=== PATIENT | male | born 1950 | race Caucasian/White ===

== ENCOUNTER 2021-01-16 20:55 | Observation (INO) | payer OTHER, MEDICARE, MEDICAID ==
--- NOTE | 2021-01-16 21:02 | EDM.PDOC ---
ED HPI GENERAL MEDICAL PROBLEM - General Chief Complaint: Lower Extremity Injury/Pain Stated Complaint: FALL WITH LEFT KNEE/HIP PAIN Time Seen by Provider: 01/16/21 20:55 Source of Information: Reports: Patient, EMS History Limitations: Reports: No Limitations - History of Present Illness INITIAL COMMENTS - FREE TEXT/NARRATIVE: Patient comes emergency department today by ambulance from a local [facility] with concerns of a headache fall and left hip pain. This patient who has a history of hypertension right bundle nga block CVA type 2 diabetes hypothyroidism Guillain-Kamara syndrome thalamic infarct was at the basic care center today at the [facility] here in [place] at about noon when he suddenly had what he relates as a sharp shooting pain on the right side of his head and then he fell to the ground. He is unsure if he hit his head. He is unsure if he had a loss of consciousness. He laid on the floor until nursing staff found him in the basic care center approximately 8 hours later. He was unable to get up from the floor because he had severe pain in his left hip from the fall. He was brought to the emergency department for further evaluation. Upon arrival the patient is alert and appropriate. He has no head or neck or back pain. He has no visual acuity changes. No confusion. No paresthesias of his upper or lower extremities. No chest pain or shortness of breath or difficulty breathing. No cough or congestion. No recent fever or chills. No abdominal pain nausea or vomiting. No hematuria dysuria urinary frequency. No black or tarry stools. The patient is incontinent of urine and stool but that is because he laid on the floor and was unable to get up and get to the bathroom. He primarily complains of a mild headache as well as pain to his left hip. Left Knee Pain Score (Numeric/FACES): 5 - Related Data Allergies Allergy/AdvReac Type Severity Reaction Status Date / Time Influenza Virus Vaccines Allergy Difficulty Verified 01/17/21 01:41 CDT Breathing tetanus and diphtheria Allergy Difficulty Verified 01/17/21 01:41 CDT toxoids Breathing Home Meds: Home Meds ARIPiprazole [Abilify] 10 mg PO DAILY 01/16/21 [History] Acetaminophen 650 mg PO BID 01/16/21 [History] Alogliptin Benzoate [Alogliptin] 25 mg PO DAILY 01/16/21 [History] Aspirin [Ecotrin EC] 325 mg PO DAILY 01/16/21 [History] Bicalutamide [Casodex] 25 mg PO DAILY 01/16/21 [History] Diclofenac Sodium [Voltaren 1% Gel] 2 gram TOP QID PRN 01/16/21 [History] Finasteride 5 mg PO DAILY 01/16/21 [History] Insulin Glarg,Human.Rec.Analog [Lantus] 30 units SUBCUT DAILY 01/16/21 [History] Levothyroxine 150 mcg PO DAILY 01/16/21 [History] Lidocaine 5% [Lidoderm 5%] 1 patch TOP DAILY PRN 01/16/21 [History] Menthol/Camphor [Sarna Original 0.5%-0.5% Lotn] 1 applic TOP ASDIRECTED PRN 01/16/21 [History] Metoprolol Succinate 12.5 mg PO DAILY 01/16/21 [History] Nicotine Polacrilex [Nicotine Lozenge] 2 mg BUCCAL Q4H PRN 01/16/21 [History] Polyethylene Glycol [Polyox Wsr-301] 17 gram PO DAILY PRN 01/16/21 [History] Sertraline [Zoloft] 100 mg PO DAILY 01/16/21 [History] atorvaSTATin [Lipitor] 40 mg PO BEDTIME 01/16/21 [History] lisinopriL [Lisinopril] 5 mg PO DAILY 01/16/21 [History] metFORMIN [Glucophage XR] 500 mg PO DAILY 01/16/21 [History] Review of Systems - Review of Systems Review Of Systems: Comprehensive ROS is negative, except as noted in HPI. ED EXAM, GENERAL - Physical Exam Exam: See Below Free Text/Narrative:: The patient is incontinent of urine upon arrival. Exam Limited By: No Limitations General Appearance: Alert, WD/WN, No Apparent Distress Eye Exam: Bilateral Eye: Corneal Abrasion, PERRL Ears: Normal External Exam, Normal TMs Nose: Normal Inspection, Normal Mucosa Throat/Mouth: Normal Inspection, Normal Lips, Normal Oropharynx, Normal Voice Head: Atraumatic, Normocephalic Neck: Normal Inspection, Supple, Non-Tender, Full Range of Motion. No: Tender Lateral, Tender Midline Respiratory/Chest: No Respiratory Distress, Lungs Clear, Normal Breath Sounds, No Accessory Muscle Use, Chest Non-Tender Cardiovascular: Normal Peripheral Pulses, Regular Rate, Rhythm Peripheral Pulses: 2+: Radial (L), Radial (R), Posterior Tibial (L), Posterior Tibial (R), Dorsalis Pedis (L), Dorsalis Pedis (R) GI/Abdominal: Normal Bowel Sounds, Soft, Non-Tender (Male) Exam: Deferred Rectal (Males) Exam: Deferred Back Exam: Normal Inspection, Full Range of Motion. No: Paraspinal Tenderness, Vertebral Tenderness Extremities: Normal Capillary Refill. No: Normal Inspection (His left leg he is unable to straighten due to pain in his left leg. He has tenderness to the lateral greater trochanteric the left hip. His pelvis is stable. CMS is intact appropriately. Rest of his extremities are unremarkable) Neurological: Alert, Oriented, Normal Cognition, No Motor/Sensory Deficits Psychiatric: Normal Affect, Normal Mood Skin Exam: Warm, Dry, Intact, Normal Color, No Rash Course - Vital Signs Last Recorded V/S: Last Vital Signs Temp 98.3 F 01/17/21 12:00 Pulse 87 01/17/21 12:00 Resp 20 01/17/21 12:00 BP 126/70 01/17/21 12:00 Pulse Ox 97 01/17/21 12:00 - Orders/Labs/Meds Orders: Active Orders 24 hr Category Date Time Status Admission Status [Patient Status] [ADT] Routine ADT 01/16/21 22:46 Active Head wo Cont [CT] Stat Exams 01/16/21 21:02 Taken Hip Min 2V or 3V w Pelvis Lt [CR] Stat Exams 01/16/21 21:04 Taken Labs: Laboratory Tests 01/16/21 01/16/21 01/16/21 Range/Units 21:03 21:15 21:15 WBC 12.0 H (4.0-10.2) K/uL RBC 4.78 (4.33-5.41) M/uL Hgb 13.6 (13.1-16.8) g/dL Hct 40.8 (39.0-49.0) % MCV 85.4 (84.0-98.0) fL MCH 28.5 (28.2-33.3) pg MCHC 33.3 (31.7-36.0) g/dL RDW 14.2 H (11.2-14.1) % Plt Count 157 (150-350) K/uL Neut % (Auto) 85.4 H (45.0-80.0) % Lymph % (Auto) 6.9 L (10.0-50.0) % [place] % (Auto) 6.9 (2.0-14.0) % Eos % (Auto) 0.5 (0.0-5.0) % Baso % (Auto) 0.3 (0.0-2.0) % Neut # (Auto) 10.21 H (1.40-7.00) K/uL Lymph # (Auto) 0.83 (0.50-3.50) K/uL [place] # (Auto) 0.82 (0.00-1.00) K/uL Eos # (Auto) 0.06 (0.00-0.50) K/uL Baso # (Auto) 0.03 (0.00-0.20) K/uL Sodium 139 (136-145) mmol/L Potassium 4.6 (3.5-5.1) mmol/L Chloride 101 (98-107) mmol/L Carbon Dioxide 23.1 (21.0-32.0) mmol/L Anion Gap 14.9 (7-15) meq/L BUN 29 H (7-18) mg/dL Creatinine 1.18 H (0.51-1.17) mg/dL Est Cr Clr Drug Dosing 58.43 mL/min Estimated GFR (MDRD) > 60 mL/min Glucose 172 H (70-99) mg/dL Lactic Acid (0.4-2.0) mmol/L Calcium 9.0 (8.5-10.1) mg/dL Magnesium 1.8 (1.8-2.4) mg/dL Total Bilirubin 0.9 (0.2-1.0) mg/dL AST 29 (15-37) U/L ALT 26 (12-78) U/L Alkaline Phosphatase 90 (46-116) IU/L Creatine Kinase 184 (26-308) U/L Troponin I High Sens 53 (<=76) ng/L C-Reactive Protein 0.7 (<=0.9) mg/dL Total Protein 7.3 (6.4-8.2) g/dL Albumin 3.9 (3.4-5.0) g/dL SARS-CoV-2 Ag (Rapid) Negative (NEGATIVE) 01/16/21 Range/Units 21:15 WBC (4.0-10.2) K/uL RBC (4.33-5.41) M/uL Hgb (13.1-16.8) g/dL Hct (39.0-49.0) % MCV (84.0-98.0) fL MCH (28.2-33.3) pg MCHC (31.7-36.0) g/dL RDW (11.2-14.1) % Plt Count (150-350) K/uL Neut % (Auto) (45.0-80.0) % Lymph % (Auto) (10.0-50.0) % [place] % (Auto) (2.0-14.0) % Eos % (Auto) (0.0-5.0) % Baso % (Auto) (0.0-2.0) % Neut # (Auto) (1.40-7.00) K/uL Lymph # (Auto) (0.50-3.50) K/uL [place] # (Auto) (0.00-1.00) K/uL Eos # (Auto) (0.00-0.50) K/uL Baso # (Auto) (0.00-0.20) K/uL Sodium (136-145) mmol/L Potassium (3.5-5.1) mmol/L Chloride (98-107) mmol/L Carbon Dioxide (21.0-32.0) mmol/L Anion Gap (7-15) meq/L BUN (7-18) mg/dL Creatinine (0.51-1.17) mg/dL Est Cr Clr Drug Dosing mL/min Estimated GFR (MDRD) mL/min Glucose (70-99) mg/dL Lactic Acid 1.8 (0.4-2.0) mmol/L Calcium (8.5-10.1) mg/dL Magnesium (1.8-2.4) mg/dL Total Bilirubin (0.2-1.0) mg/dL AST (15-37) U/L ALT (12-78) U/L Alkaline Phosphatase (46-116) IU/L Creatine Kinase (26-308) U/L Troponin I High Sens (<=76) ng/L C-Reactive Protein (<=0.9) mg/dL Total Protein (6.4-8.2) g/dL Albumin (3.4-5.0) g/dL SARS-CoV-2 Ag (Rapid) (NEGATIVE) Meds: Medications Discontinued Medications Generic Name Dose Route Start Last Admin Trade Name Freq PRN Reason Stop Dose Admin Acetaminophen 650 mg 01/16/21 23:37 01/17/21 01:05 [employer] Acetaminophen 325 Mg Tab PO 01/16/21 23:38 Not Given NOW ONE Acetaminophen 650 mg 01/17/21 00:14 Acetaminophen 325 Mg Tab PO Q4H PRN Pain (Mild 1-3)/fever Acetaminophen 650 mg 01/17/21 08:00 01/17/21 08:26 Acetaminophen 325 Mg Tab PO 650 mg BID TESS Administration Alogliptin Benzoate 25 mg 01/17/21 08:00 01/17/21 08:26 Alogliptin 25 Mg Tab PO 25 mg DAILY TESS Administration Aripiprazole 10 mg 01/16/21 23:39 01/17/21 01:05 [employer] Aripiprazole 10 Mg Tab PO 01/16/21 23:40 Not Given ONETIME ONE Aripiprazole 10 mg 01/17/21 08:00 01/17/21 08:26 Aripiprazole 10 Mg Tab PO 10 mg DAILY TESS Administration Atorvastatin Calcium 40 mg 01/16/21 23:39 01/17/21 01:06 [employer] Atorvastatin 40 Mg Tab PO 01/16/21 23:40 Not Given ONETIME ONE Atorvastatin Calcium 40 mg 01/17/21 20:00 Atorvastatin 40 Mg Tab PO BEDTIME TESS Bicalutamide 25 mg 01/16/21 23:39 01/17/21 01:05 [employer] Bicalutamide 50 Mg Tab PO 01/16/21 23:40 Not Given ONETIME ONE Bicalutamide 25 mg 01/17/21 08:00 01/17/21 08:26 Bicalutamide 50 Mg Tab PO 25 mg DAILY TESS Administration Dextrose/Water 50 ml 01/17/21 00:19 50% Dextrose In Water 50 Ml Syringe IVPUSH ASDIRECTED PRN Hypoglycemia Enoxaparin Sodium 40 mg 01/17/21 08:00 01/17/21 08:25 Enoxaparin 40 Mg/0.4 Ml Syringe SUBCUT 40 mg DAILY TESS Administration Finasteride 5 mg 01/17/21 08:00 01/17/21 08:26 Finasteride 5 Mg Tab PO 5 mg DAILY TESS Administration Glucagon 1 mg 01/17/21 00:19 Glucagon,Human Recombinant 1 Mg Vial IM ASDIRECTED PRN Hypoglycemia Insulin Glargine 30 unit 01/17/21 08:00 01/17/21 08:25 Insulin Glarg,Human.Rec.Analog 100 Unit/Ml SUBCUT 30 unit DAILY TESS Administration Levothyroxine Sodium 150 mcg 01/17/21 08:00 01/17/21 08:26 Levothyroxine 150 Mcg Tab PO 150 mcg DAILY TESS Administration Lisinopril 5 mg 01/17/21 08:00 01/17/21 08:27 Lisinopril 5 Mg Tab PO 5 mg DAILY TESS Administration Metformin HCl 1,500 mg 01/16/21 23:36 01/17/21 02:49 Metformin 500 Mg Tab PO 01/16/21 23:37 Not Given NOW STA Metformin HCl 250 mg 01/17/21 08:00 Metformin 500 Mg Tab PO BID TESS Metformin HCl 500 mg 01/17/21 08:00 01/17/21 08:26 Metformin 500 Mg Tab PO 500 mg BID TESS Administration Metoprolol Succinate 12.5 mg 01/17/21 08:00 01/17/21 08:27 Metoprolol Succinate 25 Mg Tab.Er PO 12.5 mg DAILY TESS Administration Morphine Sulfate 2 mg 01/16/21 21:03 01/16/21 21:07 Morphine 2 Mg/Ml Syringe IVPUSH 01/16/21 21:04 2 mg ONETIME ONE Administration Morphine Sulfate 2 mg 01/16/21 21:38 01/16/21 22:09 Morphine 2 Mg/Ml Syringe IVPUSH 01/16/21 21:39 2 mg ONETIME ONE Administration Morphine Sulfate 4 mg 01/17/21 00:23 01/17/21 14:17 Morphine 4 Mg/Ml Syringe IVPUSH 4 mg Q2H PRN Administration Pain (severe 7-10) Ondansetron HCl 4 mg 01/16/21 21:03 01/16/21 21:07 Ondansetron 4 Mg/2 Ml Sdv IV 01/16/21 21:04 4 mg ONETIME ONE Administration Oxycodone HCl 5 mg 01/17/21 00:14 01/17/21 14:17 Oxycodone 5 Mg Tab PO 5 mg Q4H PRN Administration Pain (moderate 4-6) Polyethylene Glycol 17 gm 01/17/21 08:00 01/17/21 08:25 Polyethylene Glycol 3350 Powder 17 Gm Packet PO 17 gm DAILY TESS Administration Sertraline HCl 100 mg 01/17/21 08:00 01/17/21 08:26 Sertraline 50 Mg Tab PO 100 mg DAILY TESS Administration - Radiology Interpretation Free Text/Narrative:: CT of the head per radiology shows no acute intercranial process. X-ray of the pelvis and left hip initially reviewed extemporaneously by myself. There is a left femoral neck impacted fracture with some angulation. X-ray of the hip and pelvis per radiology an acute intertrochanteric fracture of the left hip, subsequent foreshortening and varus angulation. - Re-Assessments/Exams Free Text/Narrative Re-Assessment/Exam: 01/16/21 21:14 IV was established labs are drawn. Prophylactic nausea. Morphine for the left hip pain. EKG unremarkable CT of the head negative. X-ray of the left hip shows a left femoral neck intertrochanteric impacted fracture with some mild elation. Laboratory evaluation with a CBC at 12.0, hemoglobin 13.6, platelet count 157. CMP with a creatinine of 1.8, BUN 29 with a GFR greater than 60. This is about his baseline kidney function. Glucose 172. Troponin is negative. CPK is negative. Covid is negative. I did speak with the [facility] in [place] and the hospitalist on-call. They are unable to assist us with bed placement at this time as orthopedics is not repair acute hip fracture is at the OR in [place] and they approved admission either here or at another facility. I called and spoke with [facility] which is the patient's other primary care provider and [facility] at this time. We will place the patient into observation in the hospital here for pain management until we are able to find bed placement for him. He is comfortable with this plan his questions are answered. His pain is well controlled with morphine. Departure - Departure Time of Disposition: 23:00 Disposition: Refer to Observation Clinical Impression: Intertrochanteric fracture, hip - Discharge Information - Problem List & Annotations (1) Intertrochanteric fracture, hip SNOMED Code(s): 526085771 Code(s): S72.143A - DISPLACED INTERTROCHANTERIC FRACTURE OF UNSP FEMUR, INIT Status: Acute Annotation/Comment:: Fall from standing today. Closed intertrochanteric fracture. Needs surgical placement and repair waiting for bed. (2) Cerebral infarction due to vascular occlusion SNOMED Code(s): 860699504, 751487553 Code(s): I63.9 - CEREBRAL INFARCTION, UNSPECIFIED Status: Chronic Annotation/Comment:: Stable at baseline no acute neurological changes or findings or concerns (3) Essential hypertension SNOMED Code(s): 55549725 Code(s): I10 - ESSENTIAL (PRIMARY) HYPERTENSION Status: Chronic Annotation/Comment:: Blood pressure controlled at this time. Continue home medications monitor (4) Dysphagia SNOMED Code(s): 53511099, 984085084 Code(s): R13.10 - DYSPHAGIA, UNSPECIFIED Status: Chronic (5) Morbid obesity SNOMED Code(s): 105036458 Code(s): E66.01 - MORBID (SEVERE) OBESITY DUE TO EXCESS CALORIES Status: Acute Annotation/Comment:: Discussed healthy eating habits as well as exercise. (6) Diabetes mellitus without complication, with long-term current use of insulin SNOMED Code(s): 409481670 Code(s): E11.9 - TYPE 2 DIABETES MELLITUS WITHOUT COMPLICATIONS; Z79.4 - APPRAISAL MANAGER (CURRENT) USE OF INSULIN Status: Chronic Annotation/Comment:: Blood sugar controlled at this time. No signs of DKA. Monitor. Continue home medications. (7) Hyperlipidemia SNOMED Code(s): 37366410 Code(s): E78.5 - HYPERLIPIDEMIA, UNSPECIFIED Status: Acute Annotation/Comment:: Stable continue home medications (8) Hypothyroidism SNOMED Code(s): 09784960 Code(s): E03.9 - HYPOTHYROIDISM, UNSPECIFIED Status: Acute Annotation/Comment:: Stable continue home medications. No complaints (9) Depression SNOMED Code(s): 86947629 Code(s): F32.A - DEPRESSION, UNSPECIFIED Status: Acute Annotation/Comment:: At baseline monitor (10) CKD (chronic kidney disease) stage 2, GFR 60-89 ml/min SNOMED Code(s): 760260078 Code(s): N18.2 - CHRONIC KIDNEY DISEASE, STAGE 2 (MILD) Status: Acute Annotation/Comment:: His kidney function is at baseline. No IV fluids at this time. Continue to monitor (11) Tobacco use disorder, continuous SNOMED Code(s): 441718034 Code(s): F17.209 - NICOTINE DEPENDENCE, UNSP, W UNSP NICOTINE-INDUCED DISORDERS Status: Acute - Problem List Review Problem List Initiated/Reviewed/Updated: Yes - My Orders Last 24 Hours: My Active Orders 01/16/21 21:02 Head wo Cont [CT] Stat 01/16/21 21:04 Hip Min 2V or 3V w Pelvis Lt [CR] Stat 01/16/21 22:46 Admission Status [Patient Status] [ADT] Routine - Assessment/Plan Last 24 Hours: My Active Orders 01/16/21 21:02 Head wo Cont [CT] Stat 01/16/21 21:04 Hip Min 2V or 3V w Pelvis Lt [CR] Stat 01/16/21 22:46 Admission Status [Patient Status] [ADT] Routine Assessment:: Admission/plan. Acute diagnosis Displaced intertrochanteric fracture of the left femur. Bedrest, Tylenol, oxycodone morphine pain. Transfer when bed available. Chronic kidney disease stage II. 11/19/2020 creatinine 1.29, BUN 25, GFR 55. 01/18/2021 creatinine 1.18 BUN 29 GFR greater than 60. Continue to monitor. At baseline. Chronic diagnosis. Cerebral infarction. No acute findings. Hold aspirin due to surgery need. Essential hypertension Vitals 126/70. Continue metoprolol, lisinopril Dysphagia [place] thickened fluids Morbid obesity Discussed healthy eating habits as well as exercise. Type 2 diabetes mellitus without complications. Hemoglobin A1c 1 month ago 8.3 Alogliptin 25 mg daily, Metformin XR 1 g twice daily Lantus 28 units at bedtime Monitor POC and labs. Hyperlipidemia Stable on atorvastatin 40 mg bedtime Hypothyroidism TSH 2.4 1-month ago Continue levothyroxine 150 mcg daily Depression Stable Abilify 10 mg bedtime sertraline 150 mg daily Nicotine dependence Refuses Habitrol patch Discussed ways of quitting and cutting back. VTE: Teds, enoxaparin 40 mg subcutaneous daily. Sepsis: No signs of sepsis at this time monitor closely. CODE STATUS: DNR/DNI. We will admit the patient into observation status at this time as we are unable to transfer him to a tertiary care center for evaluation. Hopefully this will not be more than 48 hours until we are able to identify a place where he will be able to be transferred. He is placed on the state transfer center list at [facility] in [place]. During the day tomorrow I will spend time as well looking for another place for this patient to be transferred to.
[2021-01-16] MEDS ORDERED: Ondansetron 4 MG/2 ML SDV IV ONE (21:03)
[2021-01-16] MEDS ORDERED: Morphine 2 MG/ML SYRINGE IVPUSH ONE ×2 (21:03→21:38)
--- NOTE | 2021-01-16 21:39 | PCM.EKG ---
#1 Interpretation EKG Date: 01/16/21 Time: 21:23 Rhythm: NSR Rate (Beats/Min): 110 [place]: Normal P-Wave: Present QRS: RBBB ST-T: Normal QT: Normal Comparison: No Change
[2021-01-16 21:51] LABS: ANION GAP 14.9 meq/L (7-15); CHLORIDE,CL 101 mmol/L (98-107); SODIUM,NA 139 mmol/L (136-145)
[2021-01-16] MEDS ORDERED: metFORMIN 500 MG Tab PO STA (23:36)
[2021-01-16] MEDS ORDERED: Acetaminophen 325 MG Tab PO ONE (23:37)
[2021-01-16] MEDS ORDERED: atorvaSTATin 40 MG Tab PO ONE (23:39)
[2021-01-16] MEDS ORDERED: ARIPiprazole 10 MG Tab PO ONE (23:39)
[2021-01-17] MEDS ORDERED: Acetaminophen 325 MG Tab PO PRN (00:14)
[2021-01-17] MEDS ORDERED: oxyCODONE 5 MG Tab PO PRN (00:14)
[2021-01-17] MEDS ORDERED: Glucagon,Human Recombinant 1 MG Vial IM PRN (00:19)
[2021-01-17] MEDS ORDERED: 50% Dextrose in Water 50 ML Syringe IVPUSH PRN (00:19)
[2021-01-17] MEDS: Morphine 4 MG/ML Syringe IVPUSH PRN ×2 (01:13→14:17)
[2021-01-17] MEDS ORDERED: Lisinopril 5 MG Tab PO SCH (08:00)
[2021-01-17] MEDS ORDERED: metFORMIN 500 MG Tab PO SCH ×2 (08:00)
[2021-01-17] MEDS ORDERED: Acetaminophen 325 MG Tab PO SCH (08:00)
[2021-01-17] MEDS ORDERED: Sertraline 50 MG Tab PO SCH (08:00)
[2021-01-17] MEDS ORDERED: Insulin Glarg,Human.Rec.Analog 100 Unit/ML SUBCUT SCH (08:00)
[2021-01-17] MEDS ORDERED: Polyethylene Glycol 3350 Powder 17 GM Packet PO SCH (08:00)
[2021-01-17] MEDS ORDERED: Enoxaparin 40 MG/0.4 ML Syringe SUBCUT SCH (08:00)
[2021-01-17] MEDS ORDERED: ARIPiprazole 10 MG Tab PO SCH (08:00)
[2021-01-17] MEDS ORDERED: Metoprolol Succinate 25 MG Tab.ER PO SCH (08:00)
[2021-01-17] MEDS ORDERED: Levothyroxine 150 MCG Tab PO SCH (08:00)
[2021-01-17] MEDS ORDERED: Finasteride 5 MG Tab PO SCH (08:00)
--- NOTE | 2021-01-17 14:06 | PCM.DCSUM1 ---
Discharge Summary - Discharge Data Discharge Date: 01/17/21 Discharge Disposition: DC/Tfer to Acute Hospital 02 Condition: Good - Referral to Home Health Primary Care Physician: VIPIN Tejada - Discharge Diagnosis/Problem(s) (1) CKD (chronic kidney disease) stage 2, GFR 60-89 ml/min SNOMED Code(s): 935711930 ICD Code: N18.2 - CHRONIC KIDNEY DISEASE, STAGE 2 (MILD) Status: Acute Problem Details: His kidney function is at baseline. No IV fluids at this time. Continue to monitor (2) Depression SNOMED Code(s): 79742811 ICD Code: F32.A - DEPRESSION, UNSPECIFIED Status: Acute Problem Details: At baseline monitor (3) Hyperlipidemia SNOMED Code(s): 90658709 ICD Code: E78.5 - HYPERLIPIDEMIA, UNSPECIFIED Status: Acute Problem Details: Stable continue home medications (4) Hypothyroidism SNOMED Code(s): 83489114 ICD Code: E03.9 - HYPOTHYROIDISM, UNSPECIFIED Status: Acute Problem Details: Stable continue home medications. No complaints (5) Intertrochanteric fracture, hip SNOMED Code(s): 002821738 ICD Code: S72.143A - DISPLACED INTERTROCHANTERIC FRACTURE OF UNSP FEMUR, INIT Status: Acute Problem Details: I was able to call and talk with Dr. Robert at [facility]. HPI ER COURSE hospital course was relayed to Dr. Robert. He accepted the patient in transfer at this time. (6) Morbid obesity SNOMED Code(s): 742009228 ICD Code: E66.01 - MORBID (SEVERE) OBESITY DUE TO EXCESS CALORIES Status: Acute Problem Details: Discussed healthy eating habits as well as exercise. (7) Tobacco use disorder, continuous SNOMED Code(s): 232780122 ICD Code: F17.209 - NICOTINE DEPENDENCE, UNSP, W UNSP NICOTINE-INDUCED DISORDERS Status: Acute (8) Cerebral infarction due to vascular occlusion SNOMED Code(s): 347384422, 786397761 ICD Code: I63.9 - CEREBRAL INFARCTION, UNSPECIFIED Status: Chronic Problem Details: Stable at baseline no acute neurological changes or findings or concerns (9) Diabetes mellitus without complication, with long-term current use of insulin SNOMED Code(s): 624323500 ICD Code: E11.9 - TYPE 2 DIABETES MELLITUS WITHOUT COMPLICATIONS; Z79.4 - NURSING HOME (CURRENT) USE OF INSULIN Status: Chronic Problem Details: Blood sugar controlled at this time. No signs of DKA. Monitor. Continue home medications. - Patient Summary/Data Hospital Course: Patient was admitted into the hospital on 01/16/2021 for observation with a diagnosis of a left intertrochanteric fracture with impaction and mild angulation that is closed. This patient is in the basic living center at the [facility] here in [place]. On 01/16/2021 at approximately noon or so the patient had a sudden headache and fell to the ground and injured his left hip. He laid on the floor for approximately 7 hours. He came to the emergency department. He was diagnosed with a left intertrochanteric fracture. The CT of his head was normal. His neurological exam was negative. His EKG troponin as well as CPK were normal. We are unable to find placement for him at this time so he was placed in observation. He was controlled with pain with Tylenol oxycodone and morphine as needed. He was placed on subcutaneous Lovenox for DVT prophylaxis. His aspirin was held due to the possibility of surgery in the near future. The rest of his chronic medical conditions were addressed and controlled and continued. I spoke with Dr. Reyes at [facility] today who accepted this patient in transfer at this time for possible surgical intervention. - Discharge Plan Home Medications: Home Meds ARIPiprazole [Abilify] 10 mg PO DAILY 01/16/21 [History] Acetaminophen 650 mg PO BID 01/16/21 [History] Alogliptin Benzoate [Alogliptin] 25 mg PO DAILY 01/16/21 [History] Aspirin [Ecotrin EC] 325 mg PO DAILY 01/16/21 [History] Bicalutamide [Casodex] 25 mg PO DAILY 01/16/21 [History] Diclofenac Sodium [Voltaren 1% Gel] 2 gram TOP QID PRN 01/16/21 [History] Finasteride 5 mg PO DAILY 01/16/21 [History] Insulin Glarg,Human.Rec.Analog [Lantus] 30 units SUBCUT DAILY 01/16/21 [History] Levothyroxine 150 mcg PO DAILY 01/16/21 [History] Lidocaine 5% [Lidoderm 5%] 1 patch TOP DAILY PRN 01/16/21 [History] Menthol/Camphor [Sarna Original 0.5%-0.5% Lotn] 1 applic TOP ASDIRECTED PRN 01/16/21 [History] Metoprolol Succinate 12.5 mg PO DAILY 01/16/21 [History] Nicotine Polacrilex [Nicotine Lozenge] 2 mg BUCCAL Q4H PRN 01/16/21 [History] Polyethylene Glycol [Polyox Wsr-301] 17 gram PO DAILY PRN 01/16/21 [History] Sertraline [Zoloft] 100 mg PO DAILY 01/16/21 [History] atorvaSTATin [Lipitor] 40 mg PO BEDTIME 01/16/21 [History] lisinopriL [Lisinopril] 5 mg PO DAILY 01/16/21 [History] metFORMIN [Glucophage XR] 500 mg PO DAILY 01/16/21 [History] Forms: ED Department Discharge, Interfacility Transfer EMTALA Referrals: Kendy Mustafa PA [Primary Care Provider] - - Discharge Summary/Plan Comment DC Time >30 min.: Yes Total # of Minutes for Discharge Time: 65 working on bed placement - General Info Date of Service: 01/17/21 Admission Dx/Problem (Free Text: Left intertrochanteric fracture with impaction and displacement Subjective Update: Patient has had his pain pretty well controlled throughout the night. He has been resting comfortably. He has been eating and drinking. Voiding okay. Had a bowel movement this morning. Still waiting on bed placement for surgical repair of his hip fracture. Functional Status: Reports: Pain Controlled, Tolerating Diet, Urinating - Review of Systems General: Reports: No Symptoms HEENT: Reports: No Symptoms Pulmonary: Reports: No Symptoms Cardiovascular: Reports: No Symptoms Gastrointestinal: Reports: No Symptoms Genitourinary: Reports: No Symptoms Musculoskeletal: Reports: No Symptoms Skin: Reports: No Symptoms Neurological: Reports: No Symptoms Psychiatric: Reports: No Symptoms - Patient Data Vitals - Most Recent: Last Vital Signs Temp 98.3 F 01/17/21 12:00 Pulse 87 01/17/21 12:00 Resp 20 01/17/21 12:00 BP 126/70 01/17/21 12:00 Pulse Ox 97 01/17/21 12:00 Weight - Most Recent: 230 lb I&O - Last 24 hours: Intake & Output 01/16/21 01/17/21 01/17/21 23:59 06:59 14:59 Intake Total 120 Output Total 450 Balance -330 Lab Results - Last 24 hrs: Laboratory Results - last 24 hr 01/16/21 01/16/21 01/16/21 Range/Units 21:03 21:15 21:15 WBC 12.0 H (4.0-10.2) K/uL RBC 4.78 (4.33-5.41) M/uL Hgb 13.6 (13.1-16.8) g/dL Hct 40.8 (39.0-49.0) % MCV 85.4 (84.0-98.0) fL MCH 28.5 (28.2-33.3) pg MCHC 33.3 (31.7-36.0) g/dL RDW 14.2 H (11.2-14.1) % Plt Count 157 (150-350) K/uL Neut % (Auto) 85.4 H (45.0-80.0) % Lymph % (Auto) 6.9 L (10.0-50.0) % [place] % (Auto) 6.9 (2.0-14.0) % Eos % (Auto) 0.5 (0.0-5.0) % Baso % (Auto) 0.3 (0.0-2.0) % Neut # (Auto) 10.21 H (1.40-7.00) K/uL Lymph # (Auto) 0.83 (0.50-3.50) K/uL [place] # (Auto) 0.82 (0.00-1.00) K/uL Eos # (Auto) 0.06 (0.00-0.50) K/uL Baso # (Auto) 0.03 (0.00-0.20) K/uL Sodium 139 (136-145) mmol/L Potassium 4.6 (3.5-5.1) mmol/L Chloride 101 (98-107) mmol/L Carbon Dioxide 23.1 (21.0-32.0) mmol/L Anion Gap 14.9 (7-15) meq/L BUN 29 H (7-18) mg/dL Creatinine 1.18 H (0.51-1.17) mg/dL Est Cr Clr Drug Dosing 58.43 mL/min Estimated GFR (MDRD) > 60 mL/min Glucose 172 H (70-99) mg/dL Lactic Acid (0.4-2.0) mmol/L Calcium 9.0 (8.5-10.1) mg/dL Magnesium 1.8 (1.8-2.4) mg/dL Total Bilirubin 0.9 (0.2-1.0) mg/dL AST 29 (15-37) U/L ALT 26 (12-78) U/L Alkaline Phosphatase 90 (46-116) IU/L Creatine Kinase 184 (26-308) U/L Troponin I High Sens 53 (<=76) ng/L C-Reactive Protein 0.7 (<=0.9) mg/dL Total Protein 7.3 (6.4-8.2) g/dL Albumin 3.9 (3.4-5.0) g/dL SARS-CoV-2 Ag (Rapid) Negative (NEGATIVE) 01/16/21 Range/Units 21:15 WBC (4.0-10.2) K/uL RBC (4.33-5.41) M/uL Hgb (13.1-16.8) g/dL Hct (39.0-49.0) % MCV (84.0-98.0) fL MCH (28.2-33.3) pg MCHC (31.7-36.0) g/dL RDW (11.2-14.1) % Plt Count (150-350) K/uL Neut % (Auto) (45.0-80.0) % Lymph % (Auto) (10.0-50.0) % [place] % (Auto) (2.0-14.0) % Eos % (Auto) (0.0-5.0) % Baso % (Auto) (0.0-2.0) % Neut # (Auto) (1.40-7.00) K/uL Lymph # (Auto) (0.50-3.50) K/uL [place] # (Auto) (0.00-1.00) K/uL Eos # (Auto) (0.00-0.50) K/uL Baso # (Auto) (0.00-0.20) K/uL Sodium (136-145) mmol/L Potassium (3.5-5.1) mmol/L Chloride (98-107) mmol/L Carbon Dioxide (21.0-32.0) mmol/L Anion Gap (7-15) meq/L BUN (7-18) mg/dL Creatinine (0.51-1.17) mg/dL Est Cr Clr Drug Dosing mL/min Estimated GFR (MDRD) mL/min Glucose (70-99) mg/dL Lactic Acid 1.8 (0.4-2.0) mmol/L Calcium (8.5-10.1) mg/dL Magnesium (1.8-2.4) mg/dL Total Bilirubin (0.2-1.0) mg/dL AST (15-37) U/L ALT (12-78) U/L Alkaline Phosphatase (46-116) IU/L Creatine Kinase (26-308) U/L Troponin I High Sens (<=76) ng/L C-Reactive Protein (<=0.9) mg/dL Total Protein (6.4-8.2) g/dL Albumin (3.4-5.0) g/dL SARS-CoV-2 Ag (Rapid) (NEGATIVE) Med Orders - Current: Current Medications Acetaminophen (Acetaminophen 325 Mg Tab) 650 mg PO Q4H PRN PRN Reason: Pain (Mild 1-3)/fever Acetaminophen (Acetaminophen 325 Mg Tab) 650 mg PO BID [facility] Last Admin: 01/17/21 08:26 Dose: 650 mg Documented by: Alogliptin Benzoate (Alogliptin 25 Mg Tab) 25 mg PO DAILY [facility] Last Admin: 01/17/21 08:26 Dose: 25 mg Documented by: Aripiprazole (Aripiprazole 10 Mg Tab) 10 mg PO DAILY [facility] Last Admin: 01/17/21 08:26 Dose: 10 mg Documented by: Atorvastatin Calcium (Atorvastatin 40 Mg Tab) 40 mg PO BEDTIME [facility] Bicalutamide (Bicalutamide 50 Mg Tab) 25 mg PO DAILY [facility] Last Admin: 01/17/21 08:26 Dose: 25 mg Documented by: Dextrose/Water (50% Dextrose In Water 50 Ml Syringe) 50 ml IVPUSH ASDIRECTED PRN PRN Reason: Hypoglycemia Enoxaparin Sodium (Enoxaparin 40 Mg/0.4 Ml Syringe) 40 mg SUBCUT DAILY [facility] Last Admin: 01/17/21 08:25 Dose: 40 mg Documented by: Finasteride (Finasteride 5 Mg Tab) 5 mg PO DAILY [facility] Last Admin: 01/17/21 08:26 Dose: 5 mg Documented by: Glucagon (Glucagon,Human Recombinant 1 Mg Vial) 1 mg IM ASDIRECTED PRN PRN Reason: Hypoglycemia Insulin Glargine (Insulin Glarg,Human.Rec.Analog 100 Unit/Ml) 30 unit SUBCUT DAILY [facility] Last Admin: 01/17/21 08:25 Dose: 30 unit Documented by: Levothyroxine Sodium (Levothyroxine 150 Mcg Tab) 150 mcg PO DAILY [facility] Last Admin: 01/17/21 08:26 Dose: 150 mcg Documented by: Lisinopril (Lisinopril 5 Mg Tab) 5 mg PO DAILY [facility] Last Admin: 01/17/21 08:27 Dose: 5 mg Documented by: Metformin HCl (Metformin 500 Mg Tab) 500 mg PO BID [facility] Last Admin: 01/17/21 08:26 Dose: 500 mg Documented by: Metoprolol Succinate (Metoprolol Succinate 25 Mg Tab.Er) 12.5 mg PO DAILY [facility] Last Admin: 01/17/21 08:27 Dose: 12.5 mg Documented by: Morphine Sulfate (Morphine 4 Mg/Ml Syringe) 4 mg IVPUSH Q2H PRN PRN Reason: Pain (severe 7-10) Last Admin: 01/17/21 01:13 [employer]PERATOR Dose: 4 mg Documented by: Oxycodone HCl (Oxycodone 5 Mg Tab) 5 mg PO Q4H PRN PRN Reason: Pain (moderate 4-6) Polyethylene Glycol (Polyethylene Glycol 3350 Powder 17 Gm Packet) 17 gm PO DAILY [facility] Last Admin: 01/17/21 08:25 Dose: 17 gm Documented by: Sertraline HCl (Sertraline 50 Mg Tab) 100 mg PO DAILY [facility] Last Admin: 01/17/21 08:26 Dose: 100 mg Documented by: Discontinued Medications Acetaminophen (Acetaminophen 325 Mg Tab) 650 mg PO NOW ONE Stop: 01/16/21 23:38 Last Admin: 01/17/21 01:05 [employer]ACHINE OPERATOR Dose: Not Given Documented by: Aripiprazole (Aripiprazole 10 Mg Tab) 10 mg PO ONETIME ONE Stop: 01/16/21 23:40 Last Admin: 01/17/21 01:05 [employer]ACHINE OPERATOR Dose: Not Given Documented by: Atorvastatin Calcium (Atorvastatin 40 Mg Tab) 40 mg PO ONETIME ONE Stop: 01/16/21 23:40 Last Admin: 01/17/21 01:06 [employer] MACHINE OPERATOR Dose: Not Given Documented by: Bicalutamide (Bicalutamide 50 Mg Tab) 25 mg PO ONETIME ONE Stop: 01/16/21 23:40 Last Admin: 01/17/21 01:05 [employer]ACHINE OPERATOR Dose: Not Given Documented by: Metformin HCl (Metformin 500 Mg Tab) 1,500 mg PO NOW STA Stop: 01/16/21 23:37 Last Admin: 01/17/21 02:49 Dose: Not Given Documented by: Metformin HCl (Metformin 500 Mg Tab) 250 mg PO BID TESS Morphine Sulfate (Morphine 2 Mg/Ml Syringe) 2 mg IVPUSH ONETIME ONE Stop: 01/16/21 21:04 Last Admin: 01/16/21 21:07 Dose: 2 mg Documented by: Morphine Sulfate (Morphine 2 Mg/Ml Syringe) 2 mg IVPUSH ONETIME ONE Stop: 01/16/21 21:39 Last Admin: 01/16/21 22:09 Dose: 2 mg Documented by: Ondansetron HCl (Ondansetron 4 Mg/2 Ml Sdv) 4 mg IV ONETIME ONE Stop: 01/16/21 21:04 Last Admin: 01/16/21 21:07 Dose: 4 mg Documented by: - Exam Quality Assessment: Reports: DVT Prophylaxis (Lovenox). Denies: Skin Breakdown General: Reports: Alert, Oriented HEENT: Reports: Pupils Equal, Pupils Reactive, EOMI Neck: Reports: Supple Lungs: Reports: Clear to Auscultation, Normal Respiratory Effort Cardiovascular: Reports: Regular Rate, Regular Rhythm GI/Abdominal Exam: Normal Bowel Sounds, Soft, Non-Tender (Male) Exam: Deferred Rectal (Males) Exam: Deferred Back Exam: Reports: Normal Inspection Extremities: No Pedal Edema, Normal Capillary Refill. No: Normal Inspection (Tenderness to the left hip otherwise normal extremities no breaks in the skin) Skin: Reports: Warm, Dry, Intact Neurological: Reports: No New Focal Deficit Psy/Mental Status: Reports: Alert, Normal Affect, Normal Mood
[2021-01-17] MEDS ORDERED: atorvaSTATin 40 MG Tab PO SCH (20:00)
== END 2021-01-17 15:30 ==
LOC: LL.ED 20:55 → LL.MS 23:15 → UNDOADMOB 23:15 → UNDODISOB 01-17 15:30
PROVIDERS: ADMIT Nurse Practitioner Family; ATTEND Nurse Practitioner Family
DX: S72.142A Displaced intertrochanteric fracture of left femur, initial encounter for closed fracture (principal); E66.01 Morbid (severe) obesity due to excess calories; E78.5 Hyperlipidemia, unspecified; E03.9 Hypothyroidism, unspecified; F32.A Depression, unspecified; N18.2 Chronic kidney disease, stage 2 (mild); I12.9 Hypertensive chronic kidney disease with stage 1 through stage 4 chronic kidney disease, or unspecified chronic kidney disease; E11.22 Type 2 diabetes mellitus with diabetic chronic kidney disease; F17.209 Nicotine dependence, unspecified, with unspecified nicotine-induced disorders; R13.10 Dysphagia, unspecified; Z20.822 Contact with and (suspected) exposure to COVID-19
CPT/HCPCS: 70450; 80053; 82550; 83605; 83735; 84484; 85025; 86140; 87426; 93005; 93010; 96372; 96374; 96375; 96376; 99217; 99220; 99285-25; A9270-GY; G0378; J1650; J1815-GY; J2270; J2405

== ENCOUNTER 2021-01-25 10:28 | Inpatient (IN) | payer MEDICARE, MEDICAID ==
[2021-01-25] MEDS ORDERED: Potassium Chloride 20 MEQ Tab.ER PO ONE ×2 (12:45→18:33)
[2021-01-25] MEDS ORDERED: Camphor/Menthol 0.5-0.5% Lotion 222 ML Bottle TOP PRN (14:51)
[2021-01-25] MEDS ORDERED: Diclofenac Sodium 1% Gel 100 GM Tube TOP PRN (14:51)
[2021-01-25] MEDS ORDERED: Glucagon,Human Recombinant 1 MG Vial IM PRN (14:51)
[2021-01-25] MEDS ORDERED: 50% Dextrose in Water 50 ML Syringe IVPUSH PRN (14:51)
[2021-01-25] MEDS ORDERED: Loperamide 2 MG Tab PO ONE (15:13)
[2021-01-25] MEDS ORDERED: Lidocaine 4% 1 each Patch TOP PRN (15:41)
[2021-01-25] MEDS ORDERED: Remove Patch LIDOCAINE PATCH TRDERM PRN (15:41)
[2021-01-25] MEDS ORDERED: Acetaminophen 325 MG Tab PO PRN (16:00)
[2021-01-25] MEDS ORDERED: Nicotine 21 MG/24 Hr Patch TRDERM PRN (16:00)
[2021-01-25] MEDS ORDERED: Remove Patch NICOTINE PATCH TRDERM PRN (16:04)
[2021-01-25] MEDS: oxyCODONE 5 MG Tab PO PRN (16:32)
[2021-01-25] MEDS: Acetaminophen 325 MG Tab PO SCH (19:24)
[2021-01-25] MEDS: ARIPiprazole 10 MG Tab PO SCH (19:24)
[2021-01-25] MEDS ORDERED: Potassium Chloride 10 MEQ Tab.ER PO ONE (21:00)
--- NOTE | 2021-01-25 21:00 | PCM.HP.2 ---
H&P History of Present Illness - General Date of Service: 01/25/21 Admit Problem/Dx: Admission Diagnosis/Problem Admission Diagnosis/Problem Hip fracture requiring operative repair Source of Information: Patient, Old Records History Limitations: Reports: No Limitations - History of Present Illness Initial Comments - Free Text/Narative: Patient transferred here from [facility] for PT/OT after undergoing surgical repair of left hip fracture. - Related Data Allergies/Adverse Reactions: Allergies Allergy/AdvReac Type Severity Reaction Status Date / Time Influenza Virus Vaccines Allergy Difficulty Verified 01/17/21 01:41 CDT Breathing tetanus and diphtheria Allergy Difficulty Verified 01/17/21 01:41 CDT toxoids Breathing Home Medications: Home Meds ARIPiprazole [Abilify] 10 mg PO BEDTIME 01/16/21 [History] Acetaminophen 650 mg PO Q12HR 01/16/21 [History] Aspirin [Ecotrin EC] 325 mg PO DAILY 01/16/21 [History] Bicalutamide [Casodex] 25 mg PO BEDTIME 01/16/21 [History] Diclofenac Sodium [Voltaren 1% Gel] 2 gram TOP QID PRN 01/16/21 [History] Finasteride 5 mg PO DAILY 01/16/21 [History] Insulin Glarg,Human.Rec.Analog [Lantus] 25 units SUBCUT DAILY 01/16/21 [History] Levothyroxine 150 mcg PO DAILY 01/16/21 [History] Lidocaine 5% [Lidoderm 5%] 1 patch TOP DAILY PRN 01/16/21 [History] Menthol/Camphor [Sarna Original 0.5%-0.5% Lotn] 1 applic TOP ASDIRECTED PRN 01/16/21 [History] Metoprolol Succinate 12.5 mg PO DAILY 01/16/21 [History] Nicotine Polacrilex [Nicotine Lozenge] 2 mg BUCCAL Q4H PRN 01/16/21 [History] Polyethylene Glycol [Polyox Wsr-301] 17 gram PO DAILY PRN 01/16/21 [History] Sertraline [Zoloft] 150 mg PO DAILY 01/16/21 [History] atorvaSTATin [Lipitor] 40 mg PO BEDTIME 01/16/21 [History] lisinopriL [Lisinopril] 5 mg PO DAILY 01/16/21 [History] Bisacodyl [Laxative Suppository] 10 mg RC Q3D PRN 01/25/21 [History] Enoxaparin [Lovenox] 40 mg SUBCUT DAILY 01/25/21 [History] oxyCODONE 5 mg PO Q6HR PRN 01/25/21 [History] Past Medical History HEENT History: Reports: Impaired Vision Cardiovascular History: Reports: High Cholesterol, Hypertension, Other (See Below) Other Cardiovascular History: hx RBBB Gastrointestinal History: Reports: Colon Polyp Genitourinary History: Reports: BPH, Prostate Disorder Musculoskeletal History: Reports: Arthritis, Fracture Neurological History: Reports: CVA Psychiatric History: Reports: Depression, Other (See Below) (ETOH use/quit approx 1 year ago (2019)) Endocrine/Metabolic History: Reports: Diabetes, Type II, Hypothyroidism, Obesity/BMI 30+ Oncologic (Cancer) History: Reports: Prostate - Past Surgical History HEENT Surgical History: Reports: Oral Surgery Cardiovascular Surgical History: Reports: None GI Surgical History: Reports: Colonoscopy Endocrine Surgical History: Reports: None Musculoskeletal Surgical History: Reports: Knee Replacement Oncologic Surgical History: Reports: None - History Comment History Comment: Frequent falls Social & Family History - Family History Family Medical History: No Pertinent Family History - Tobacco Use Tobacco Use Status *Q: Current Every Day Tobacco User Tobacco Use Within Last Twelve Months: Smokeless Tobacco Years of Tobacco use: 70 Packs/Tins Daily: 0.2 Smoking Cessation Information Provided To Patient: Patient Refused Second Hand Smoke Exposure: Yes - Caffeine Use Caffeine Use: Reports: Coffee, Soda - Recreational Drug Use Recreational Drug Use: No H&P Review of Systems - Review of Systems: Review Of Systems: See Below General: Reports: Weakness. Denies: Fever, Chills, Malaise, Night Sweats, Diaphoresis, Decreased Appetite, Weight Loss, Weight Gain HEENT: Reports: No Symptoms Pulmonary: Reports: No Symptoms Cardiovascular: Reports: No Symptoms Gastrointestinal: Reports: Diarrhea. Denies: Melena, Nausea, Vomiting Genitourinary: Reports: No Symptoms Musculoskeletal: Reports: Other (no acute changes from baseline other than recent left hip fracture and surgical repair) Skin: Reports: Other (Healing incision from left hip repair) Psychiatric: Reports: No Symptoms Neurological: Reports: Weakness (generalized). Denies: Confusion, Dizziness, Headache, Trouble Speaking, Change in Speech Exam - Exam Exam: See Below - Vital Signs Vital Signs: Last Vital Signs Temp 37.0 C 01/25/21 19:27 Pulse 78 01/25/21 19:27 Resp 20 01/25/21 19:27 BP 168/87 H 01/25/21 19:27 Pulse Ox 97 01/25/21 19:27 Weight: 102.421 kg - Exam Quality Assessment: DVT Prophylaxis General: Alert, Oriented, Cooperative HEENT: Conjunctiva Clear, EACs Clear, EOMI, Hearing Intact, Mucosa Moist & [place], Nares Patent, Pupils Equal, Pupils Reactive Neck: Supple, Trachea Midline Lungs: Clear to Auscultation, Normal Respiratory Effort Cardiovascular: Regular Rate, Regular Rhythm GI/Abdominal Exam: Normal Bowel Sounds, Soft, Non-Tender, No Distention (Male) Exam: Deferred Rectal (Males) Exam: Deferred Back Exam: No: CVA Tenderness (L), CVA Tenderness (R), Muscle Spasm Extremities: Normal Capillary Refill, Other (Tender proximal left leg/healing incision line from recent surgery) Skin: Warm, Dry Neuro Extensive - Mental Status: Normal Mood/Affect Psychiatric: Alert, Normal Affect, Normal Mood - Patient Data Lab Results Last 24 hrs: Laboratory Results - last 24 hr 01/25/21 Range/Units 17:38 POC Glucose 135 H (70-99) mg/dL Sepsis Event Note - Evaluation Sepsis Screening Result: No Definite Risk - Focused Exam Vital Signs: Vital Signs Temp Pulse Resp BP Pulse Ox 01/25/21 19:27 37.0 C 78 20 168/87 H 97 - Problem List (1) Intertrochanteric fracture, hip SNOMED Code(s): 886933129 ICD Code: S72.143A - DISPLACED INTERTROCHANTERIC FRACTURE OF UNSP FEMUR, INIT Status: Acute Priority: High Current Visit: Yes Problem Details: S/P surgical repair at [facility]. Here for PT/OT. (2) Diarrhea SNOMED Code(s): 57718033 ICD Code: R19.7 - DIARRHEA, UNSPECIFIED Status: Acute Priority: Medium Current Visit: Yes Problem Details: Patient noted to have several very loose stools shortly after arrival to [facility]. No mention of loose stools from [facility] prior to transfer. As precaution stool culture/C.Diff ordered. Patient afebrile. Continue to observe. Qualifiers: Diarrhea type: unspecified type Qualified Code(s): R19.7 - Diarrhea, unspecified (3) Hypokalemia SNOMED Code(s): 42392019 ICD Code: E87.6 - HYPOKALEMIA Status: Acute Priority: Medium Current Visit: Yes Problem Details: Patient transferred from [facility] with K of 2.9 Oral supplementation initiated. Recheck level in AM. (4) CKD (chronic kidney disease) stage 2, GFR 60-89 ml/min SNOMED Code(s): 269763202 ICD Code: N18.2 - CHRONIC KIDNEY DISEASE, STAGE 2 (MILD) Status: Chronic Priority: Low Current Visit: No Problem Details: stable per history. Observe (5) Depression SNOMED Code(s): 41762920 ICD Code: F32.A - DEPRESSION, UNSPECIFIED Status: Chronic Priority: Low Current Visit: No Problem Details: At baseline. Continue home medication Qualifiers: Depression Type: unspecified Qualified Code(s): F32.A - Depression, unspecified (6) Hyperlipidemia SNOMED Code(s): 93670350 ICD Code: E78.5 - HYPERLIPIDEMIA, UNSPECIFIED Status: Chronic Priority: Low Current Visit: No Problem Details: Under therapy. Continue home medications Qualifiers: Hyperlipidemia type: unspecified Qualified Code(s): E78.5 - Hyperlipidemia, unspecified (7) Hypothyroidism SNOMED Code(s): 09489640 ICD Code: E03.9 - HYPOTHYROIDISM, UNSPECIFIED Status: Acute Priority: Low Current Visit: No Problem Details: Under therapy. Continue home medications. Qualifiers: Hypothyroidism type: acquired Qualified Code(s): E03.9 - Hypothyroidism, unspecified (8) Morbid obesity SNOMED Code(s): 658354954 ICD Code: E66.01 - MORBID (SEVERE) OBESITY DUE TO EXCESS CALORIES Status: Chronic Priority: Low Current Visit: Yes Problem Details: Discussed healthy eating habits/dietary changes that would be beneficial. (9) Tobacco use disorder, continuous SNOMED Code(s): 276906174 ICD Code: F17.209 - NICOTINE DEPENDENCE, UNSP, W UNSP NICOTINE-INDUCED DISORDERS Status: Chronic Priority: Low Current Visit: Yes Problem Details: jail use smokeless tobacco. Patient not interested in discontinu ation at this time. (10) Diabetes mellitus without complication, with long-term current use of insulin SNOMED Code(s): 814654862 ICD Code: E11.9 - TYPE 2 DIABETES MELLITUS WITHOUT COMPLICATIONS; Z79.4 - TELEVISION ANNOUNCER (CURRENT) USE OF INSULIN Status: Chronic Priority: Low Current Visit: Yes Problem Details: Accuchecks. Continue home medications. Qualifiers: Diabetes mellitus type: type 2 Qualified Code(s): E11.9 - Type 2 diabetes mellitus without complications; Z79.4 - jail (current) use of insulin (11) Essential hypertension SNOMED Code(s): 52698138 ICD Code: I10 - ESSENTIAL (PRIMARY) HYPERTENSION Status: Chronic Priority: Low Current Visit: No Problem Details: Blood pressure controlled at this time. Continue home medications and monitor Problem List Initiated/Reviewed/Updated: Yes Orders Last 24hrs: Active Orders 24 hr Category Date Time Status Patient Status [ADT] Routine ADT 01/25/21 14:45 Active Blood Glucose Check, Bedside [RC] QIDACANDBED Care 01/25/21 14:45 Active Communication Order [RC] BID Care 01/25/21 20:00 Active Communication Order [RC] BID Care 01/25/21 20:00 Active Communication Order [RC] BID Care 01/25/21 20:00 Active Communication Order [RC] BID Care 01/25/21 20:00 Active Height and Weight [RC] Mo@08 Care 01/25/21 14:45 Active Intake and Output [RC] ,18 Care 01/25/21 14:47 Active May Shower [RC] .PRN Care 01/25/21 14:45 Active Oxygen Therapy [RC] .PRN Care 01/25/21 14:45 Active Pulse Oximetry [RC] .PRN Care 01/25/21 14:47 Active Up With Assistance [RC] .PRN Care 01/25/21 14:45 Active VTE/DVT Education [RC] Mo@08 Care 01/25/21 14:45 Active Vital Signs [RC] ,20 Care 01/25/21 14:45 Active Consult to Case Management/Metalworking Instructor [CONS] Cons 01/25/21 14:45 Active Routine OT Evaluation and Treatment [CONS] Routine Cons 01/25/21 14:45 Active PT Evaluation and Treatment [CONS] Routine Cons 01/25/21 14:45 Active [employer] Diet [DIET] Diet 01/25/21 Dinner Active BASIC METABOLIC PANEL,BMP [CHEM] AM Lab 01/26/21 05:15 Ordered CBC WITH AUTO DIFF [HEME] AM Lab 01/26/21 05:15 Ordered CLOSTRIDIUM DIFFICILE TOX RFLX [MREF] Stat Lab 01/25/21 14:10 Received STOOL CULTURE [MREF] Stat Lab 01/25/21 14:10 Received ARIPiprazole [Abilify] Med 01/25/21 20:00 Active 10 mg PO BEDTIME Acetaminophen [TylenoL] Med 01/25/21 20:00 Active 650 mg PO Q12HR Acetaminophen [TylenoL] Med 01/25/21 16:00 Active 650 mg PO Q4H PRN Aspirin [Ecotrin] Med 02/15/21 08:00 Active 325 mg PO DAILY Bicalutamide [Casodex] Med 01/25/21 20:00 Active 25 mg PO BEDTIME Camphor/Menthol [Sarna Lotion] Med 01/25/21 14:51 Active 0 ml TOP ASDIRECTED PRN Dextrose 50% in Water Med 01/25/21 14:51 Active 50 ml IVPUSH ASDIRECTED PRN Diclofenac Sodium [Voltaren 1% Gel] Med 01/25/21 14:51 Active 2 gm TOP QID PRN Enoxaparin [Lovenox] Med 01/26/21 08:00 Active 40 mg SUBCUT DAILY Finasteride [Proscar] Med 01/26/21 08:00 Active 5 mg PO DAILY Glucagon,Human Recombinant [GlucaGen] Med 01/25/21 14:51 Active 1 mg IM ASDIRECTED PRN Insulin Glarg,Human.Rec.Analog [LantUS] Med 01/26/21 08:00 Active 25 unit SUBCUT DAILY Levothyroxine Med 01/26/21 07:30 Active 150 mcg PO ACBREAKFAST Levothyroxine Med 01/26/21 08:00 Active 150 mcg PO DAILY Lidocaine 4% [Aspercreme 4%] Med 01/25/21 15:41 Active 1 each TOP DAILY PRN Metoprolol Succinate [Toprol XL] Med 01/26/21 08:00 Active 12.5 mg PO DAILY Nicotine [Habitrol] Med 01/25/21 16:00 Active 21 mg TRDERM DAILY PRN Potassium Chloride [Klor-Con 10] Med 01/25/21 21:00 Once 20 meq PO ONETIME ONE Remove Patch Med 01/25/21 15:41 Active 1 ea TRDERM BEDTIME PRN Remove Patch Med 01/25/21 16:04 Active 1 ea TRDERM DAILY PRN Sertraline [Zoloft] Med 01/26/21 08:00 Active 150 mg PO DAILY atorvaSTATin [Lipitor] Med 01/26/21 20:00 Active 40 mg PO BEDTIME lisinopriL [Prinivil] Med 01/26/21 08:00 Active 5 mg PO DAILY oxyCODONE Med 01/25/21 14:51 Active 5 mg PO Q6HR PRN Resuscitation Status Routine Resus Stat 01/25/21 14:45 Ordered Medication Orders Acetaminophen (Acetaminophen 325 Mg Tab) 650 mg PO Q12HR [facility] Last Admin: 01/25/21 19:24 Dose: 650 mg Documented by: STEVE Acetaminophen (Acetaminophen 325 Mg Tab) 650 mg PO Q4H PRN PRN Reason: PAIN Aripiprazole (Aripiprazole 10 Mg Tab) 10 mg PO BEDTIME [facility] Last Admin: 01/25/21 19:24 Dose: 10 mg Documented by: STEVE Aspirin (Aspirin 325 Mg Tab.Ec) 325 mg PO DAILY [facility] Atorvastatin Calcium (Atorvastatin 40 Mg Tab) 40 mg PO BEDTIME TESS Bicalutamide (Bicalutamide 50 Mg Tab) 25 mg PO BEDTIME [facility] Last Admin: 01/25/21 19:23 Dose: 25 mg Documented by: STEVE Camphor/Menthol (Camphor/Menthol 0.5-0.5% Lotion 222 Ml Bottle) 0 ml TOP ASDIRECTED PRN PRN Reason: Itching Dextrose/Water (50% Dextrose In Water 50 Ml Syringe) 50 ml IVPUSH ASDIRECTED PRN PRN Reason: Hypoglycemia Diclofenac Sodium (Diclofenac Sodium 1% Gel 100 Gm Tube) 2 gm TOP QID PRN PRN Reason: Pain Enoxaparin Sodium (Enoxaparin 40 Mg/0.4 Ml Syringe) 40 mg SUBCUT DAILY [facility] Stop: 02/14/21 08:01 Finasteride (Finasteride 5 Mg Tab) 5 mg PO DAILY [facility] Glucagon (Glucagon,Human Recombinant 1 Mg Vial) 1 mg IM ASDIRECTED PRN PRN Reason: Hypoglycemia Insulin Glargine (Insulin Glarg,Human.Rec.Analog 100 Unit/Ml) 25 unit SUBCUT DAILY [facility] Levothyroxine Sodium (Levothyroxine 150 Mcg Tab) 150 mcg PO DAILY [facility] Levothyroxine Sodium (Levothyroxine 150 Mcg Tab) 150 mcg PO ACBREAKFAST [facility] Lidocaine (Lidocaine 4% 1 Each Patch) 1 each TOP DAILY PRN PRN Reason: Pain Lisinopril (Lisinopril 5 Mg Tab) 5 mg PO DAILY [facility] Metoprolol Succinate (Metoprolol Succinate 25 Mg Tab.Er) 12.5 mg PO DAILY [facility] Miscellaneous Information (Remove Patch Lidocaine Patch) 1 ea TRDERM BEDTIME PRN PRN Reason: IF PATCH APPLIED Miscellaneous Information (Remove Patch Nicotine Patch) 1 ea TRDERM DAILY PRN PRN Reason: IF PRN PATCH APPLIED Nicotine (Nicotine 21 Mg/24 Hr Patch) 21 mg TRDERM DAILY PRN PRN Reason: Withdrawal Symptoms Oxycodone HCl (Oxycodone 5 Mg Tab) 5 mg PO Q6HR PRN PRN Reason: Pain (severe 7-10) Last Admin: 01/25/21 16:32 Dose: 5 mg Documented by: JOSE Potassium Chloride (Potassium Chloride 10 Meq Tab.Er) 20 meq PO ONETIME ONE Stop: 01/25/21 21:01 Sertraline HCl (Sertraline 50 Mg Tab) 150 mg PO DAILY [facility] Assessment/Plan Comment:: as above. PT/OT. Assess if patient can return to assisted living. May need higher level of care depending on response to therapy and ability to recover from surgery/hip fracture. - Mortality Measure Prognosis:: Good
[2021-01-26] MEDS: oxyCODONE 5 MG Tab PO PRN ×2 (04:43→12:24)
[2021-01-26] MEDS ORDERED: Insulin Glarg,Human.Rec.Analog 100 Unit/ML SUBCUT SCH (08:00)
[2021-01-26] MEDS ORDERED: Levothyroxine 150 MCG Tab PO SCH (08:00)
[2021-01-26 08:18] LABS: CHLORIDE,CL 109 mmol/L (98-107); SODIUM,NA 140 mmol/L (136-145)
[2021-01-26 08:19] LABS: ANION GAP 11.5 meq/L (7-15)
[2021-01-26] MEDS: Acetaminophen 325 MG Tab PO SCH ×2 (08:20→19:52)
[2021-01-26] MEDS: Finasteride 5 MG Tab PO SCH (08:21)
[2021-01-26] MEDS: Metoprolol Succinate 25 MG Tab.ER PO SCH (08:22)
[2021-01-26] MEDS: Levothyroxine 150 MCG Tab PO SCH (08:23)
[2021-01-26] MEDS: Lisinopril 5 MG Tab PO SCH (08:24)
[2021-01-26] MEDS: Sertraline 50 MG Tab PO SCH (08:24)
[2021-01-26] MEDS: Enoxaparin 40 MG/0.4 ML Syringe SUBCUT SCH (08:24)
[2021-01-26] MEDS: Insulin Glarg,Human.Rec.Analog 100 Unit/ML SUBCUT SCH (11:26)
[2021-01-26] MEDS: ARIPiprazole 10 MG Tab PO SCH (19:51)
[2021-01-26] MEDS: atorvaSTATin 40 MG Tab PO SCH (19:53)
[2021-01-27] MEDS: Metoprolol Succinate 25 MG Tab.ER PO SCH (07:41)
[2021-01-27] MEDS: Lisinopril 5 MG Tab PO SCH (07:47)
[2021-01-27] MEDS: Finasteride 5 MG Tab PO SCH (07:47)
[2021-01-27] MEDS: Acetaminophen 325 MG Tab PO SCH ×2 (07:47→19:58)
[2021-01-27] MEDS: Enoxaparin 40 MG/0.4 ML Syringe SUBCUT SCH (07:48)
[2021-01-27] MEDS: Sertraline 50 MG Tab PO SCH (07:48)
[2021-01-27] MEDS: Levothyroxine 150 MCG Tab PO SCH (07:48)
[2021-01-27] MEDS: Insulin Glarg,Human.Rec.Analog 100 Unit/ML SUBCUT SCH (07:53)
[2021-01-27] MEDS ORDERED: Loperamide 2 MG Tab PO PRN (10:31)
[2021-01-27] MEDS: ARIPiprazole 10 MG Tab PO SCH (19:58)
[2021-01-27] MEDS: atorvaSTATin 40 MG Tab PO SCH (19:58)
[2021-01-28 07:31] LABS: ANION GAP 8.3 meq/L (7-15); CHLORIDE,CL 105 mmol/L (98-107); SODIUM,NA 139 mmol/L (136-145)
[2021-01-28] MEDS: Enoxaparin 40 MG/0.4 ML Syringe SUBCUT SCH (08:07)
[2021-01-28] MEDS: Levothyroxine 150 MCG Tab PO SCH (08:08)
[2021-01-28] MEDS: Sertraline 50 MG Tab PO SCH (08:41)
[2021-01-28] MEDS: Acetaminophen 325 MG Tab PO SCH ×2 (08:42→19:16)
[2021-01-28] MEDS: Lisinopril 5 MG Tab PO SCH (08:42)
[2021-01-28] MEDS: Metoprolol Succinate 25 MG Tab.ER PO SCH (08:43)
[2021-01-28] MEDS: Finasteride 5 MG Tab PO SCH (08:44)
[2021-01-28] MEDS: Insulin Glarg,Human.Rec.Analog 100 Unit/ML SUBCUT SCH (08:59)
[2021-01-28] MEDS: oxyCODONE 5 MG Tab PO PRN (11:27)
[2021-01-28] MEDS: Loperamide 2 MG Tab PO PRN (17:42)
[2021-01-28] MEDS: ARIPiprazole 10 MG Tab PO SCH (19:18)
[2021-01-28] MEDS: atorvaSTATin 40 MG Tab PO SCH (19:18)
[2021-01-29] MEDS: Sertraline 50 MG Tab PO SCH (07:58)
[2021-01-29] MEDS: Lisinopril 5 MG Tab PO SCH (07:58)
[2021-01-29] MEDS: Metoprolol Succinate 25 MG Tab.ER PO SCH (07:59)
[2021-01-29] MEDS: Finasteride 5 MG Tab PO SCH (07:59)
[2021-01-29] MEDS: Levothyroxine 150 MCG Tab PO SCH (07:59)
[2021-01-29] MEDS: Acetaminophen 325 MG Tab PO SCH ×2 (08:00→20:28)
[2021-01-29] MEDS: Enoxaparin 40 MG/0.4 ML Syringe SUBCUT SCH (08:00)
[2021-01-29] MEDS: Insulin Glarg,Human.Rec.Analog 100 Unit/ML SUBCUT SCH (08:01)
[2021-01-29] MEDS: ARIPiprazole 10 MG Tab PO SCH (20:27)
[2021-01-29] MEDS: atorvaSTATin 40 MG Tab PO SCH (20:28)
[2021-01-30] MEDS: oxyCODONE 5 MG Tab PO PRN ×2 (00:48→10:30)
[2021-01-30] MEDS: Sertraline 50 MG Tab PO SCH (08:14)
[2021-01-30] MEDS: Metoprolol Succinate 25 MG Tab.ER PO SCH (08:14)
[2021-01-30] MEDS: Acetaminophen 325 MG Tab PO SCH ×2 (08:16→19:43)
[2021-01-30] MEDS: Insulin Glarg,Human.Rec.Analog 100 Unit/ML SUBCUT SCH (08:17)
[2021-01-30] MEDS: Levothyroxine 150 MCG Tab PO SCH (08:17)
[2021-01-30] MEDS: Enoxaparin 40 MG/0.4 ML Syringe SUBCUT SCH (08:17)
[2021-01-30] MEDS: Lisinopril 5 MG Tab PO SCH (08:17)
[2021-01-30] MEDS: Finasteride 5 MG Tab PO SCH (08:18)
[2021-01-30] MEDS: ARIPiprazole 10 MG Tab PO SCH (19:42)
[2021-01-30] MEDS: atorvaSTATin 40 MG Tab PO SCH (19:42)
[2021-01-31] MEDS: Finasteride 5 MG Tab PO SCH (07:31)
[2021-01-31] MEDS: Sertraline 50 MG Tab PO SCH (07:31)
[2021-01-31] MEDS: Levothyroxine 150 MCG Tab PO SCH (07:31)
[2021-01-31] MEDS: Acetaminophen 325 MG Tab PO SCH ×2 (07:32→19:08)
[2021-01-31] MEDS: Insulin Glarg,Human.Rec.Analog 100 Unit/ML SUBCUT SCH (07:33)
[2021-01-31] MEDS: Enoxaparin 40 MG/0.4 ML Syringe SUBCUT SCH (07:40)
[2021-01-31] MEDS: oxyCODONE 5 MG Tab PO PRN (08:54)
[2021-01-31] MEDS: Metoprolol Succinate 25 MG Tab.ER PO SCH (09:10)
[2021-01-31] MEDS: Lisinopril 5 MG Tab PO SCH (09:10)
[2021-01-31] MEDS: ARIPiprazole 10 MG Tab PO SCH (19:07)
[2021-01-31] MEDS: atorvaSTATin 40 MG Tab PO SCH (19:11)
--- NOTE | 2021-01-31 19:30 | PCM.SN.2 ---
- Free Text/Narrative Note: Patient continues to have multiple very loose and foul smelling stools. First stool occurred immediately after pt arrived from [place]. Afebrile. Nonbloody. No increased abdominal pain. Stool culture negative. C.diff requested to formally rule out that possibility. Repeat CBC/Chem in AM
[2021-02-01] MEDS: traMADol 50 MG Tab PO PRN (01:19)
[2021-02-01] MEDS: Sertraline 50 MG Tab PO SCH (08:27)
[2021-02-01] MEDS: Levothyroxine 150 MCG Tab PO SCH (08:28)
[2021-02-01] MEDS: Lisinopril 5 MG Tab PO SCH (08:28)
[2021-02-01] MEDS: Finasteride 5 MG Tab PO SCH (08:28)
[2021-02-01] MEDS: Acetaminophen 325 MG Tab PO SCH ×2 (08:29→19:17)
[2021-02-01] MEDS: Insulin Glarg,Human.Rec.Analog 100 Unit/ML SUBCUT SCH (08:30)
[2021-02-01] MEDS: Metoprolol Succinate 25 MG Tab.ER PO SCH (08:30)
[2021-02-01] MEDS: Enoxaparin 40 MG/0.4 ML Syringe SUBCUT SCH (08:30)
[2021-02-01 08:50] LABS: ANION GAP 9.5 meq/L (7-15); CHLORIDE,CL 104 mmol/L (98-107); SODIUM,NA 141 mmol/L (136-145)
[2021-02-01] MEDS: ARIPiprazole 10 MG Tab PO SCH (19:17)
[2021-02-01] MEDS: atorvaSTATin 40 MG Tab PO SCH (19:17)
[2021-02-02] MEDS: Enoxaparin 40 MG/0.4 ML Syringe SUBCUT SCH (08:10)
[2021-02-02] MEDS: Sertraline 50 MG Tab PO SCH (08:11)
[2021-02-02] MEDS: Acetaminophen 325 MG Tab PO SCH ×2 (08:11→19:05)
[2021-02-02] MEDS: Finasteride 5 MG Tab PO SCH (08:12)
[2021-02-02] MEDS: Levothyroxine 150 MCG Tab PO SCH (08:12)
[2021-02-02] MEDS: Metoprolol Succinate 25 MG Tab.ER PO SCH (08:15)
[2021-02-02] MEDS: Lisinopril 5 MG Tab PO SCH (08:15)
[2021-02-02] MEDS: Insulin Glarg,Human.Rec.Analog 100 Unit/ML SUBCUT SCH (08:20)
[2021-02-02] MEDS: ARIPiprazole 10 MG Tab PO SCH (19:06)
[2021-02-02] MEDS: atorvaSTATin 40 MG Tab PO SCH (19:07)
[2021-02-03] MEDS: Metoprolol Succinate 25 MG Tab.ER PO SCH (08:18)
[2021-02-03] MEDS: Levothyroxine 150 MCG Tab PO SCH (08:18)
[2021-02-03] MEDS: Sertraline 50 MG Tab PO SCH (08:19)
[2021-02-03] MEDS: Finasteride 5 MG Tab PO SCH (08:19)
[2021-02-03] MEDS: Lisinopril 5 MG Tab PO SCH (08:20)
[2021-02-03] MEDS: Acetaminophen 325 MG Tab PO SCH ×2 (08:20→20:07)
[2021-02-03] MEDS: Enoxaparin 40 MG/0.4 ML Syringe SUBCUT SCH (08:21)
[2021-02-03] MEDS: Insulin Glarg,Human.Rec.Analog 100 Unit/ML SUBCUT SCH (08:21)
[2021-02-03] MEDS: traMADol 50 MG Tab PO PRN (09:46)
[2021-02-03] MEDS: atorvaSTATin 40 MG Tab PO SCH (20:07)
[2021-02-03] MEDS: ARIPiprazole 10 MG Tab PO SCH (20:08)
[2021-02-04] MEDS: Insulin Glarg,Human.Rec.Analog 100 Unit/ML SUBCUT SCH (07:54)
[2021-02-04] MEDS: Acetaminophen 325 MG Tab PO SCH ×2 (07:55→20:28)
[2021-02-04] MEDS: Lisinopril 5 MG Tab PO SCH (07:55)
[2021-02-04] MEDS: Metoprolol Succinate 25 MG Tab.ER PO SCH (07:58)
[2021-02-04] MEDS: Sertraline 50 MG Tab PO SCH (07:58)
[2021-02-04] MEDS: Enoxaparin 40 MG/0.4 ML Syringe SUBCUT SCH (07:58)
[2021-02-04] MEDS: Finasteride 5 MG Tab PO SCH (07:59)
[2021-02-04] MEDS: Levothyroxine 150 MCG Tab PO SCH (07:59)
[2021-02-04] MEDS: atorvaSTATin 40 MG Tab PO SCH (20:28)
[2021-02-04] MEDS: ARIPiprazole 10 MG Tab PO SCH (20:29)
[2021-02-04] MEDS: Amoxicillin 250 MG Cap PO SCH (20:29)
[2021-02-05] MEDS: Acetaminophen 325 MG Tab PO SCH ×2 (08:05→19:19)
[2021-02-05] MEDS: Finasteride 5 MG Tab PO SCH (08:05)
[2021-02-05] MEDS: Lisinopril 5 MG Tab PO SCH (08:06)
[2021-02-05] MEDS: Amoxicillin 250 MG Cap PO SCH ×3 (08:06→17:22)
[2021-02-05] MEDS: Levothyroxine 150 MCG Tab PO SCH (08:06)
[2021-02-05] MEDS: Sertraline 50 MG Tab PO SCH (08:07)
[2021-02-05] MEDS: Metoprolol Succinate 25 MG Tab.ER PO SCH (08:07)
[2021-02-05] MEDS: Enoxaparin 40 MG/0.4 ML Syringe SUBCUT SCH (08:08)
[2021-02-05] MEDS: Insulin Glarg,Human.Rec.Analog 100 Unit/ML SUBCUT SCH (08:12)
[2021-02-05] MEDS: Ciprofloxacin 500 MG Tab PO SCH ×2 (13:12→17:22)
[2021-02-05] MEDS: Loperamide 2 MG Tab PO PRN (13:40)
[2021-02-05] MEDS: ARIPiprazole 10 MG Tab PO SCH (19:18)
[2021-02-05] MEDS: atorvaSTATin 40 MG Tab PO SCH (19:19)
[2021-02-06] MEDS: Levothyroxine 150 MCG Tab PO SCH (07:53)
[2021-02-06] MEDS: Amoxicillin 250 MG Cap PO SCH ×3 (07:54→17:20)
[2021-02-06] MEDS: Ciprofloxacin 500 MG Tab PO SCH ×2 (07:54→17:20)
[2021-02-06] MEDS: Insulin Glarg,Human.Rec.Analog 100 Unit/ML SUBCUT SCH (07:55)
[2021-02-06] MEDS: Enoxaparin 40 MG/0.4 ML Syringe SUBCUT SCH (07:56)
[2021-02-06] MEDS: Sertraline 50 MG Tab PO SCH (07:57)
[2021-02-06] MEDS: Lisinopril 5 MG Tab PO SCH (07:58)
[2021-02-06] MEDS: Finasteride 5 MG Tab PO SCH (07:58)
[2021-02-06] MEDS: Acetaminophen 325 MG Tab PO SCH ×2 (07:58→19:22)
[2021-02-06] MEDS: Metoprolol Succinate 25 MG Tab.ER PO SCH (07:59)
[2021-02-06] MEDS: atorvaSTATin 40 MG Tab PO SCH (19:20)
[2021-02-06] MEDS: ARIPiprazole 10 MG Tab PO SCH (19:21)
[2021-02-07] MEDS: Ciprofloxacin 500 MG Tab PO SCH ×2 (08:42→17:42)
[2021-02-07] MEDS: Acetaminophen 325 MG Tab PO SCH ×2 (08:43→19:20)
[2021-02-07] MEDS: Sertraline 50 MG Tab PO SCH (08:43)
[2021-02-07] MEDS: Amoxicillin 250 MG Cap PO SCH ×3 (08:43→17:42)
[2021-02-07] MEDS: Levothyroxine 150 MCG Tab PO SCH (08:44)
[2021-02-07] MEDS: Finasteride 5 MG Tab PO SCH (08:44)
[2021-02-07] MEDS: Metoprolol Succinate 25 MG Tab.ER PO SCH (08:44)
[2021-02-07] MEDS: Enoxaparin 40 MG/0.4 ML Syringe SUBCUT SCH (08:45)
[2021-02-07] MEDS: Lisinopril 5 MG Tab PO SCH (08:45)
[2021-02-07] MEDS: Insulin Glarg,Human.Rec.Analog 100 Unit/ML SUBCUT SCH (08:52)
[2021-02-07] MEDS: ARIPiprazole 10 MG Tab PO SCH (19:21)
[2021-02-07] MEDS: atorvaSTATin 40 MG Tab PO SCH (19:21)
[2021-02-08] MEDS: Lisinopril 5 MG Tab PO SCH (08:03)
[2021-02-08] MEDS: Sertraline 50 MG Tab PO SCH (08:04)
[2021-02-08] MEDS: Acetaminophen 325 MG Tab PO SCH ×2 (08:04→19:16)
[2021-02-08] MEDS: Metoprolol Succinate 25 MG Tab.ER PO SCH (08:05)
[2021-02-08] MEDS: Amoxicillin 250 MG Cap PO SCH ×3 (08:06→18:19)
[2021-02-08] MEDS: Levothyroxine 150 MCG Tab PO SCH (08:07)
[2021-02-08] MEDS: Ciprofloxacin 500 MG Tab PO SCH ×2 (08:07→18:19)
[2021-02-08] MEDS: Enoxaparin 40 MG/0.4 ML Syringe SUBCUT SCH (08:07)
[2021-02-08] MEDS: Finasteride 5 MG Tab PO SCH (08:07)
[2021-02-08] MEDS: Insulin Glarg,Human.Rec.Analog 100 Unit/ML SUBCUT SCH (08:08)
[2021-02-08] MEDS: ARIPiprazole 10 MG Tab PO SCH (19:16)
[2021-02-08] MEDS: atorvaSTATin 40 MG Tab PO SCH (19:17)
[2021-02-09] MEDS: Levothyroxine 150 MCG Tab PO SCH (08:43)
[2021-02-09] MEDS: Ciprofloxacin 500 MG Tab PO SCH ×2 (08:44→17:08)
[2021-02-09] MEDS: Enoxaparin 40 MG/0.4 ML Syringe SUBCUT SCH (08:44)
[2021-02-09] MEDS: Finasteride 5 MG Tab PO SCH (08:44)
[2021-02-09] MEDS: Amoxicillin 250 MG Cap PO SCH ×3 (08:44→17:08)
[2021-02-09] MEDS: Sertraline 50 MG Tab PO SCH (08:44)
[2021-02-09] MEDS: Acetaminophen 325 MG Tab PO SCH ×2 (08:44→19:31)
[2021-02-09] MEDS: Insulin Glarg,Human.Rec.Analog 100 Unit/ML SUBCUT SCH (08:46)
[2021-02-09] MEDS: Metoprolol Succinate 25 MG Tab.ER PO SCH (08:49)
[2021-02-09] MEDS: Lisinopril 5 MG Tab PO SCH (08:49)
[2021-02-09] MEDS: ARIPiprazole 10 MG Tab PO SCH (19:30)
[2021-02-09] MEDS: atorvaSTATin 40 MG Tab PO SCH (19:31)
[2021-02-10] MEDS: traMADol 50 MG Tab PO PRN (03:43)
[2021-02-10] MEDS: Enoxaparin 40 MG/0.4 ML Syringe SUBCUT SCH (07:30)
[2021-02-10] MEDS: Acetaminophen 325 MG Tab PO SCH ×2 (07:31→19:36)
[2021-02-10] MEDS: Lisinopril 5 MG Tab PO SCH (07:31)
[2021-02-10] MEDS: Finasteride 5 MG Tab PO SCH (07:32)
[2021-02-10] MEDS: Metoprolol Succinate 25 MG Tab.ER PO SCH (07:32)
[2021-02-10] MEDS: Amoxicillin 250 MG Cap PO SCH ×3 (07:32→17:37)
[2021-02-10] MEDS: Sertraline 50 MG Tab PO SCH (07:33)
[2021-02-10] MEDS: Levothyroxine 150 MCG Tab PO SCH (07:33)
[2021-02-10] MEDS: Ciprofloxacin 500 MG Tab PO SCH ×2 (07:33→17:37)
[2021-02-10] MEDS: Insulin Glarg,Human.Rec.Analog 100 Unit/ML SUBCUT SCH (07:34)
[2021-02-10] MEDS: ARIPiprazole 10 MG Tab PO SCH (19:35)
[2021-02-10] MEDS: atorvaSTATin 40 MG Tab PO SCH (19:37)
[2021-02-11] MEDS: Amoxicillin 250 MG Cap PO SCH ×3 (07:38→17:06)
[2021-02-11] MEDS: Sertraline 50 MG Tab PO SCH (07:39)
[2021-02-11] MEDS: Lisinopril 5 MG Tab PO SCH (07:39)
[2021-02-11] MEDS: Ciprofloxacin 500 MG Tab PO SCH ×2 (07:39→17:06)
[2021-02-11] MEDS: Levothyroxine 150 MCG Tab PO SCH (07:40)
[2021-02-11] MEDS: Acetaminophen 325 MG Tab PO SCH ×2 (07:40→19:23)
[2021-02-11] MEDS: Finasteride 5 MG Tab PO SCH (07:41)
[2021-02-11] MEDS: Metoprolol Succinate 25 MG Tab.ER PO SCH (07:41)
[2021-02-11] MEDS: Insulin Glarg,Human.Rec.Analog 100 Unit/ML SUBCUT SCH (07:42)
[2021-02-11] MEDS: Enoxaparin 40 MG/0.4 ML Syringe SUBCUT SCH (07:42)
[2021-02-11] MEDS ORDERED: Lidocaine 2% HCl 11 ML Jelly Filled Syringe ONE (09:11)
--- NOTE | 2021-02-11 10:34 | PCM.SN.2 ---
- Free Text/Narrative Note: Patient clearly has a catheter associated urinary tract infection. He is currently on Cipro. Which by culture should be appropriate. Nieto catheter was removed by nursing staff and unable to replace today. I did attempt multiple times with a Nieto catheter and coud and could get the catheter all the way in but no urinary return. With ultrasound at the bedside and her assistance direct visualization of the catheter within the bladder was identified. Prostate is moderately enlarged on my extemporaneously review of the ultrasound images. Radiological review to follow. Nieto catheter was placed easily with urinary return and identification of the Nieto catheter within the bladder per ultrasound identified. Attending at this time does not want a UA completed.
[2021-02-11] MEDS: traMADol 50 MG Tab PO PRN (10:51)
[2021-02-11] MEDS: atorvaSTATin 40 MG Tab PO SCH (19:22)
[2021-02-11] MEDS: ARIPiprazole 10 MG Tab PO SCH (19:23)
[2021-02-12] MEDS: Acetaminophen 325 MG Tab PO SCH (08:12)
[2021-02-12] MEDS: Enoxaparin 40 MG/0.4 ML Syringe SUBCUT SCH (08:12)
[2021-02-12] MEDS: Sertraline 50 MG Tab PO SCH (08:13)
[2021-02-12] MEDS: Ciprofloxacin 500 MG Tab PO SCH (08:13)
[2021-02-12] MEDS: Finasteride 5 MG Tab PO SCH (08:14)
[2021-02-12] MEDS: Metoprolol Succinate 25 MG Tab.ER PO SCH (08:14)
[2021-02-12] MEDS: Levothyroxine 150 MCG Tab PO SCH (08:15)
[2021-02-12] MEDS: Lisinopril 5 MG Tab PO SCH (08:15)
[2021-02-12] MEDS: Insulin Glarg,Human.Rec.Analog 100 Unit/ML SUBCUT SCH (08:16)
--- NOTE | 2021-02-12 10:38 | PCM.DCSUM1 ---
Discharge Summary - Hospital Course Brief History: Patient admitted to [facility] for PT and OT s/p hip fracture. Diagnosis: Stroke: No - Discharge Data Discharge Date: 02/12/21 Discharge Disposition: DC/Tfer to SNF 03 Condition: Good - Referral to Home Health Primary Care Physician: VIPIN Tejada - Discharge Diagnosis/Problem(s) (1) Intertrochanteric fracture, hip SNOMED Code(s): 791481983 ICD Code: S72.143A - DISPLACED INTERTROCHANTERIC FRACTURE OF UNSP FEMUR, INIT Status: Acute Priority: High Current Visit: Yes Problem Details: S/P surgical repair at [place]. Received PT and OT here while on Swing Bed. Progressing well. (2) E. coli UTI SNOMED Code(s): 205430925 ICD Code: N39.0 - URINARY TRACT INFECTION, SITE NOT SPECIFIED; B96.20 - UNSP ESCHERICHIA COLI THE CAUSE OF DISEASES CLASSD ELSWHR Status: Acute Priority: Medium Current Visit: Yes Problem Details: Diagnosed with UTI during Swing Bed admission, culture identified E.Coli. Treated with Cipro. Cipro to be continued after discharge in order to finish full course of therapy. Recommend new UA in one week. Note patient requires indwelling Nieto. (3) Benign prostatic hyperplasia with urinary obstruction SNOMED Code(s): 772068324 ICD Code: N40.1 - BENIGN PROSTATIC HYPERPLASIA WITH LOWER URINARY TRACT SYMP; N13.8 - OTHER OBSTRUCTIVE AND REFLUX UROPATHY Status: Chronic Priority: Medium Current Visit: Yes Problem Details: Patient requires indwelling Nieto for ability to void urine. Will need follow up by Urology for further evaluation/planning of care. (4) Indwelling Nieto catheter present SNOMED Code(s): 757671479 ICD Code: Z97.8 - PRESENCE OF OTHER SPECIFIED DEVICES Status: Acute Priority: Medium Current Visit: Yes Problem Details: As above. Nieto required due to very enlarged prostate. Swing Bed course complicated by E.Coli UTI. Patient will need close follow up by Urology. (5) Diarrhea SNOMED Code(s): 63884765 ICD Code: R19.7 - DIARRHEA, UNSPECIFIED Status: Chronic Priority: Medium Current Visit: Yes Problem Details: Significant number of loose/liquid stools during stay. Negative for CDiff. Unremarkable stool culture. Qualifiers: Diarrhea type: unspecified type Qualified Code(s): R19.7 - Diarrhea, unspecified (6) Hypokalemia SNOMED Code(s): 01473588 ICD Code: E87.6 - HYPOKALEMIA Status: Resolved Priority: Medium Current Visit: Yes Problem Details: Patient transferred from [place] with K of 2.9 Oral supplementation initiated. Normalized. (7) Diabetes mellitus without complication, with long-term current use of insulin SNOMED Code(s): 726889836 ICD Code: E11.9 - TYPE 2 DIABETES MELLITUS WITHOUT COMPLICATIONS; Z79.4 - RETIREMENT (CURRENT) USE OF INSULIN Status: Chronic Priority: Low Current Visit: Yes Problem Details: Accuchecks. Continued home medications. Follow up closely with primary provider on prison rounds. Qualifiers: Diabetes mellitus type: type 2 Qualified Code(s): E11.9 - Type 2 diabetes mellitus without complications; Z79.4 - detention (current) use of insulin (8) CKD (chronic kidney disease) stage 2, GFR 60-89 ml/min SNOMED Code(s): 260059043 ICD Code: N18.2 - CHRONIC KIDNEY DISEASE, STAGE 2 (MILD) Status: Chronic Priority: Low Current Visit: No Problem Details: stable per history. Normal BUN/Cr 02/01/21 (9) Depression SNOMED Code(s): 98431103 ICD Code: F32.A - DEPRESSION, UNSPECIFIED Status: Chronic Priority: Low Current Visit: No Problem Details: At baseline. Continue home medication Qualifiers: Depression Type: unspecified Qualified Code(s): F32.A - Depression, unspecified (10) Hyperlipidemia SNOMED Code(s): 24558861 ICD Code: E78.5 - HYPERLIPIDEMIA, UNSPECIFIED Status: Chronic Priority: Low Current Visit: No Problem Details: Under therapy. Continue home medications Qualifiers: Hyperlipidemia type: unspecified Qualified Code(s): E78.5 - Hyperlipidemia, unspecified (11) Hypothyroidism SNOMED Code(s): 01448066 ICD Code: E03.9 - HYPOTHYROIDISM, UNSPECIFIED Status: Acute Priority: Low Current Visit: No Problem Details: Under therapy. Continue home medications. Qualifiers: Hypothyroidism type: acquired Qualified Code(s): E03.9 - Hypothyroidism, unspecified (12) Morbid obesity SNOMED Code(s): 902956535 ICD Code: E66.01 - MORBID (SEVERE) OBESITY DUE TO EXCESS CALORIES Status: Chronic Priority: Low Current Visit: Yes Problem Details: Discussed healthy eating habits/dietary changes that would be beneficial. (13) Tobacco use disorder, continuous SNOMED Code(s): 135819100 ICD Code: F17.209 - NICOTINE DEPENDENCE, UNSP, W UNSP NICOTINE-INDUCED DISORDERS Status: Chronic Priority: Low Current Visit: Yes Problem Details: intermediate school teacher use smokeless tobacco. Patient not interested in discontinuation at this time. (14) Essential hypertension SNOMED Code(s): 66939616 ICD Code: I10 - ESSENTIAL (PRIMARY) HYPERTENSION Status: Chronic Priority: Low Current Visit: No Problem Details: Blood pressure controlled at this time. Continue home medications and monitor (15) Weakness SNOMED Code(s): 16295608 ICD Code: R53.1 - WEAKNESS Status: Chronic Priority: High Current V isit: Yes Problem Details: Patient continues to have weakness and associated difficulty with ADLs. Will be discharged to prison. - Patient Summary/Data Consults: Consultations 01/25/21 14:45 Consult to Case Management/Inter Com Installer [CONS] Routine OT Evaluation and Treatment [CONS] Routine PT Evaluation and Treatment [CONS] Routine 01/28/21 12:02 Consult to Speech Language Pathology [AIRPLANE ELECTRICAL REPAIRER Evaluation and Treatment] [CONS] Routine Hospital Course: Patient received PT and OT during stay. Some improvement but patient noted to still require quite a bit of assistance with transfers/ADLs. It was determined that he would need to be discharged to a retirement home facility. Course complicated by UTI as noted above. Treated with Cipro. Patient will need to be scheduled with Urology for follow up and further treatment planning. Recommend recheck of UA in one week. - Patient Instructions Diet: Diabetic Diet Activity: As Tolerated Showering/Bathing: May Shower Other/Special Instructions: Have patient followed up on prison rounds. Admit to retirement. PT/OT. Recheck UA in one week. Schedule patient for Urology consult regarding obstructing prostatic hypertrophy/urine retention/need for Nieto. - Discharge Plan *PRESCRIPTION DRUG MONITORING PROGRAM REVIEWED*: Not Applicable *COPY OF PRESCRIPTION DRUG MONITORING REPORT IN PATIENT BUCK: Not Applicable Prescriptions/Med Rec: ARIPiprazole [Abilify] 10 mg PO BEDTIME #30 Acetaminophen 650 mg PO Q12HR #1 bottle Bicalutamide [Casodex] 25 mg PO BEDTIME #30 Ciprofloxacin [Ciprofloxacin HCl] 500 mg PO BID #6 tablet Aspirin [Ecotrin EC] 325 mg PO DAILY #30 Finasteride 5 mg PO DAILY #30 Insulin Glarg,Human.Rec.Analog [Lantus] 25 units SUBCUT DAILY #1 pen Bisacodyl [Laxative Suppository] 10 mg RC Q3D PRN #1 box PRN Reason: Constipation Levothyroxine 150 mcg PO DAILY #30 Lidocaine 5% [Lidoderm 5%] 1 patch TOP DAILY PRN #30 patch PRN Reason: Pain atorvaSTATin [Lipitor] 40 mg PO BEDTIME #30 Enoxaparin [Lovenox] 40 mg SUBCUT DAILY #2 syringe Metoprolol Succinate 12.5 mg PO DAILY #15 oxyCODONE 5 mg PO Q6HR PRN #20 tablet PRN Reason: Pain (Severe 7-10) Polyethylene Glycol [Polyox Wsr-301] 17 gram PO DAILY PRN #30 PRN Reason: Constipation lisinopriL [Prinivil] 5 mg PO DAILY #30 tablet Menthol/Camphor [Sarna Original 0.5%-0.5% Lotn] 1 applic TOP ASDIRECTED PRN #1 lotion PRN Reason: Itching traMADol [Ultram] 50 mg PO Q4H PRN #20 tablet PRN Reason: Pain (Moderate 4-6) Diclofenac Sodium [Voltaren 1% Gel] 2 gram TOP QID PRN #1 tube PRN Reason: Pain Sertraline [Zoloft] 150 mg PO DAILY #30 Home Medications: Home Meds oxyCODONE 5 mg PO Q6HR PRN 01/25/21 [History] ARIPiprazole [Abilify] 10 mg PO BEDTIME #30 02/12/21 [Rx] Acetaminophen 650 mg PO Q12HR #1 bottle 02/12/21 [Rx] Aspirin [Ecotrin EC] 325 mg PO DAILY #30 02/12/21 [Rx] Bicalutamide [Casodex] 25 mg PO BEDTIME #30 02/12/21 [Rx] Bisacodyl [Laxative Suppository] 10 mg RC Q3D PRN #1 box 02/12/21 [Rx] Ciprofloxacin [Ciprofloxacin HCl] 500 mg PO BID #6 tablet 02/12/21 [Rx] Diclofenac Sodium [Voltaren 1% Gel] 2 gram TOP QID PRN #1 tube 02/12/21 [Rx] Enoxaparin [Lovenox] 40 mg SUBCUT DAILY #2 syringe 02/12/21 [Rx] Finasteride 5 mg PO DAILY #30 02/12/21 [Rx] Insulin Glarg,Human.Rec.Analog [Lantus] 25 units SUBCUT DAILY #1 pen 02/12/21 [Rx] Levothyroxine 150 mcg PO DAILY #30 02/12/21 [Rx] Lidocaine 5% [Lidoderm 5%] 1 patch TOP DAILY PRN #30 patch 02/12/21 [Rx] Menthol/Camphor [Sarna Original 0.5%-0.5% Lotn] 1 applic TOP ASDIRECTED PRN #1 lotion 02/12/21 [Rx] Metoprolol Succinate 12.5 mg PO DAILY #15 02/12/21 [Rx] Polyethylene Glycol [Polyox Wsr-301] 17 gram PO DAILY PRN #30 02/12/21 [Rx] Sertraline [Zoloft] 150 mg PO DAILY #30 02/12/21 [Rx] atorvaSTATin [Lipitor] 40 mg PO BEDTIME #30 02/12/21 [Rx] lisinopriL [Prinivil] 5 mg PO DAILY #30 tablet 02/12/21 [Rx] oxyCODONE 5 mg PO Q6HR PRN #20 tablet 02/12/21 [Rx] traMADol [Ultram] 50 mg PO Q4H PRN #20 tablet 02/12/21 [Rx] - Discharge Summary/Plan Comment DC Time >30 min.: Yes (waiting for ride to [facility]) Total # of Minutes for Discharge Time: 60 - General Info Date of Service: 02/12/21 Admission Dx/Problem (Free Text: Admission Diagnosis/Problem Admission Diagnosis/Problem Hip fracture requiring operative repair Subjective Update: Patient feels like he has improved during course of stay. Still feels weak/needs assistance with ADLs. Functional Status: Reports: Pain Controlled, Tolerating Diet, Ambulating (with assistance), Urinating (has Nieto). Denies: New Symptoms - Review of Systems General: Reports: Weakness (generalized). Denies: Fever, Malaise, Chills, Night Sweats HEENT: Reports: Glasses, Other (No acute changes) Pulmonary: Denies: Shortness of Breath, Pleuritic Chest Pain, Cough, Sputum, Hemoptysis, Wheezing Cardiovascular: Denies: Chest Pain, Palpitations, Dyspnea on Exertion, Orthopnea, Lightheadedness Gastrointestinal: Reports: Diarrhea (chronic issues with loose stools). Denies: Abdominal Pain, Constipation, Hematochezia, Melena, Nausea, Vomiting Genitourinary: Reports: Other (Nieto in place) Musculoskeletal: Reports: Other (still has some discomfort s/p left femoral neck fracture but is improving. No acute changes from baseline otherwise) Skin: Reports: No Symptoms Neurological: Reports: Difficulty Walking (chronic/recent hip fracture). Denies: Confusion, Headache, Change in Speech - Patient Data Vitals - Most Recent: Last Vital Signs Temp 36.8 C 02/12/21 07:17 Pulse 80 02/12/21 08:14 Resp 18 02/12/21 07:17 BP 136/54 L 02/12/21 08:15 Pulse Ox 94 L 02/12/21 07:17 Weight - Most Recent: 99.79 kg I&O - Last 24 hours: Intake & Output 02/11/21 02/12/21 02/12/21 22:59 06:59 14:59 Intake Total 70 Output Total 275 300 Balance -205 -300 Lab Results - Last 24 hrs: Laboratory Results - last 24 hr 02/12/21 Range/Units 07:42 POC Glucose 94 (70-99) mg/dL Med Orders - Current: Current Medications Acetaminophen (Acetaminophen 325 Mg Tab) 650 mg PO Q12HR [facility] Last Admin: 02/12/21 08:12 Dose: 650 mg Documented by: Acetaminophen (Acetaminophen 325 Mg Tab) 650 mg PO Q4H PRN PRN Reason: PAIN Last Admin: 02/02/21 16:07 Dose: 650 mg Documented by: Aripiprazole (Aripiprazole 10 Mg Tab) 10 mg PO BEDTIME [facility] Last Admin: 02/11/21 19:23 Dose: 10 mg Documented by: Aspirin (Aspirin 325 Mg Tab.Ec) 325 mg PO DAILY [facility] Atorvastatin Calcium (Atorvastatin 40 Mg Tab) 40 mg PO BEDTIME [facility] Last Admin: 02/11/21 19:22 Dose: 40 mg Documented by: Bicalutamide (Bicalutamide 50 Mg Tab) 25 mg PO BEDTIME [facility] Last Admin: 02/11/21 19:21 Dose: 25 mg Documented by: Camphor/Menthol (Camphor/Menthol 0.5-0.5% Lotion 222 Ml Bottle) 0 ml TOP ASDIRECTED PRN PRN Reason: Itching Ciprofloxacin (Ciprofloxacin 500 Mg Tab) 500 mg PO BID [facility] Stop: 02/15/21 12:00 Last Admin: 02/12/21 08:13 Dose: 500 mg Documented by: Dextrose/Water (50% Dextrose In Water 50 Ml Syringe) 50 ml IVPUSH ASDIRECTED PRN PRN Reason: Hypoglycemia Diclofenac Sodium (Diclofenac Sodium 1% Gel 100 Gm Tube) 2 gm TOP QID PRN PRN Reason: Pain Enoxaparin Sodium (Enoxaparin 40 Mg/0.4 Ml Syringe) 40 mg SUBCUT DAILY [facility] Stop: 02/14/21 08:01 Last Admin: 02/12/21 08:12 Dose: 40 mg Documented by: Finasteride (Finasteride 5 Mg Tab) 5 mg PO DAILY [facility] Last Admin: 02/12/21 08:14 Dose: 5 mg Documented by: Glucagon (Glucagon,Human Recombinant 1 Mg Vial) 1 mg IM ASDIRECTED PRN PRN Reason: Hypoglycemia Insulin Glargine (Insulin Glarg,Human.Rec.Analog 100 Unit/Ml) 12 unit SUBCUT DAILY [facility] Last Admin: 02/12/21 08:16 Dose: 12 units Documented by: Levothyroxine Sodium (Levothyroxine 150 Mcg Tab) 150 mcg PO ACBREAKFAST [facility] Last Admin: 02/12/21 08:15 Dose: 150 mcg Documented by: Lidocaine (Lidocaine 4% 1 Each Patch) 1 each TOP DAILY PRN PRN Reason: Pain Lisinopril (Lisinopril 5 Mg Tab) 5 mg PO DAILY [facility] Last Admin: 02/12/21 08:15 Dose: 5 mg Documented by: Loperamide HCl (Loperamide 2 Mg Tab) 2 mg PO ASDIRECTED PRN PRN Reason: Diarrhea Last Admin: 02/05/21 13:40 Dose: 4 mg Documented by: Metoprolol Succinate (Metoprolol Succinate 25 Mg Tab.Er) 12.5 mg PO DAILY [facility] Last Admin: 02/12/21 08:14 Dose: 12.5 mg Documented by: Miscellaneous Information (Remove Patch Lidocaine Patch) 1 ea TRDERM BEDTIME PRN PRN Reason: IF PATCH APPLIED Miscellaneous Information (Remove Patch Nicotine Patch) 1 ea TRDERM DAILY PRN PRN Reason: IF PRN PATCH APPLIED Nicotine (Nicotine 21 Mg/24 Hr Patch) 21 mg TRDERM DAILY PRN PRN Reason: Withdrawal Symptoms Oxycodone HCl (Oxycodone 5 Mg Tab) 5 mg PO Q6HR PRN PRN Reason: Pain (severe 7-10) Last Admin: 01/31/21 08:54 Dose: 5 mg Documented by: Sertraline HCl (Sertraline 50 Mg Tab) 150 mg PO DAILY [facility] Last Admin: 02/12/21 08:13 Dose: 150 mg Documented by: Tramadol HCl (Tramadol 50 Mg Tab) 50 mg PO Q4H PRN PRN Reason: Pain (moderate 4-6) Last Admin: 02/11/21 10:51 Dose: 50 mg Documented by: Discontinued Medications Amoxicillin (Amoxicillin 250 Mg Cap) 500 mg PO TID [facility] Stop: 02/11/21 19:01 Last Admin: 02/11/21 17:06 Dose: 500 mg Documented by: Insulin Glargine (Insulin Glarg,Human.Rec.Analog 100 Unit/Ml) 25 unit SUBCUT DAILY [facility] Last Admin: 01/26/21 10:26 Dose: Not Given Documented by: Levothyroxine Sodium (Levothyroxine 150 Mcg Tab) 150 mcg PO DAILY [facility] Last Admin: 01/26/21 10:19 Dose: Not Given Documented by: Lidocaine HCl (Lidocaine 2% Hcl 11 Ml Jelly Filled Syringe) Confirm Administered Dose 11 ml .ROUTE .STK-MED ONE Stop: 02/11/21 09:12 Last Admin: 02/11/21 09:32 Dose: 11 ml Documented by: Loperamide HCl (Loperamide 2 Mg Tab) 4 mg PO ONETIME ONE Stop: 01/25/21 15:14 Last Admin: 01/25/21 16:33 Dose: 4 mg Documented by: Loperamide HCl (Loperamide 2 Mg Tab) 4 mg PO ASDIRECTED PRN PRN Reason: Diarrhea Last Admin: 01/27/21 12:12 Dose: 4 mg Documented by: Potassium Chloride (Potassium Chloride 20 Meq Tab.Er) 40 meq PO ONETIME ONE Stop: 01/25/21 12:46 Last Admin: 01/25/21 13:11 Dose: 40 meq Documented by: Potassium Chloride (Potassium Chloride 20 Meq Tab.Er) 40 meq PO ONETIME ONE Stop: 01/25/21 18:34 Last Admin: 01/25/21 19:26 Dose: 40 meq Documented by: Potassium Chloride (Potassium Chloride 10 Meq Tab.Er) 20 meq PO ONETIME ONE Stop: 01/25/21 21:01 Last Admin: 01/25/21 21:29 Dose: 20 meq Documented by: - Exam Quality Assessment: Reports: DVT Prophylaxis General: Reports: Alert, Oriented, Cooperative, No Acute Distress HEENT: Reports: Pupils Equal, Pupils Reactive, EOMI, Mucous Membr. Moist/Bush Neck: Reports: Supple Lungs: Reports: Clear to Auscultation, Normal Respiratory Effort Cardiovascular: Reports: Regular Rate, Regular Rhythm GI/Abdominal Exam: Normal Bowel Sounds, Soft, Non-Tender, No Distention (Male) Exam: Deferred Rectal (Males) Exam: Deferred Back Exam: Denies: Muscle Spasm Extremities: Normal Capillary Refill Skin: Reports: Warm, Dry Neurological: Reports: No New Focal Deficit Psy/Mental Status: Reports: Alert, Normal Affect, Normal Mood
[2021-02-12 11:13] LABS: ANION GAP 9.7 meq/L (7-15)
[2021-02-15] MEDS ORDERED: Aspirin 325 MG Tab.EC PO SCH (08:00)
== END 2021-02-12 12:00 | DRG 560 ==
LOC: LL.MS 12:25
PROVIDERS: ADMIT Emergency Medicine; ATTEND Hospitalist
DX: S72.142D Displaced intertrochanteric fracture of left femur, subsequent encounter for closed fracture with routine healing (principal); N13.8 Other obstructive and reflux uropathy; T83.511A Infection and inflammatory reaction due to indwelling urethral catheter, initial encounter; N39.0 Urinary tract infection, site not specified; B96.20 Unspecified Escherichia coli [E. coli] as the cause of diseases classified elsewhere; N40.1 Benign prostatic hyperplasia with lower urinary tract symptoms; R19.7 Diarrhea, unspecified; E87.6 Hypokalemia; E11.22 Type 2 diabetes mellitus with diabetic chronic kidney disease; N18.2 Chronic kidney disease, stage 2 (mild); F32.A Depression, unspecified; E78.5 Hyperlipidemia, unspecified; E03.9 Hypothyroidism, unspecified; E66.01 Morbid (severe) obesity due to excess calories; F17.209 Nicotine dependence, unspecified, with unspecified nicotine-induced disorders; I12.9 Hypertensive chronic kidney disease with stage 1 through stage 4 chronic kidney disease, or unspecified chronic kidney disease; R53.1 Weakness; H54.7 Unspecified visual loss; Z96.659 Presence of unspecified artificial knee joint; E78.00 Pure hypercholesterolemia, unspecified; Z97.8 Presence of other specified devices; Z79.4 Long term (current) use of insulin; Z68.35 Body mass index [BMI] 35.0-35.9, adult; Z88.7 Allergy status to serum and vaccine; Z79.82 Long term (current) use of aspirin; Z79.899 Other long term (current) drug therapy; Z86.73 Personal history of transient ischemic attack (TIA), and cerebral infarction without residual deficits
CPT/HCPCS: 36415; 76857; 80048; 80053; 81001; 81003; 82947; 83735; 85025; 87045; 87046; 87086; 87088; 87186; 87493; 92610-GN; 97110-GO; 97110-GP; 97162-GP; 97165-GO; 97530-GO; 97530-GP; 97535-GO; A9270-GY; J1650; J1815-GY

== ENCOUNTER 2021-05-31 13:54 | Emergency (ER) | payer MEDICARE, MEDICAID ==
[2021-05-31] MEDS ORDERED: Sodium Chloride 0.9% 10 ML Syringe FLUSH PRN (14:20)
[2021-05-31] MEDS ORDERED: Sodium Chloride 0.9% 1,000 ML IV SCH (14:30)
[2021-05-31] MEDS ORDERED: Morphine 2 MG/ML SYRINGE IVPUSH PRN (14:32)
[2021-05-31 14:36] LABS: HEMOGLOBIN A1C 6.9 % (4.3-5.7)
[2021-05-31] MEDS ORDERED: Ondansetron 4 MG/2 ML SDV IVPUSH PRN (14:39)
[2021-05-31 14:45] LABS: ANION GAP 8.2 meq/L (7-15); CHLORIDE,CL 102 mmol/L (98-107); SODIUM,NA 139 mmol/L (136-145)
== END 2021-05-31 15:30 ==
LOC: LL.ED 13:54
DX: S72.401A Unspecified fracture of lower end of right femur, initial encounter for closed fracture (principal); E78.00 Pure hypercholesterolemia, unspecified; I10 Essential (primary) hypertension; E11.9 Type 2 diabetes mellitus without complications; E03.9 Hypothyroidism, unspecified; E66.9 Obesity, unspecified; Z68.30 Body mass index [BMI] 30.0-30.9, adult; Z86.73 Personal history of transient ischemic attack (TIA), and cerebral infarction without residual deficits; Z79.899 Other long term (current) drug therapy; W18.30XA Fall on same level, unspecified, initial encounter
CPT/HCPCS: 36415; 51702; 73501; 73560; 80053; 83036; 83735; 85025; 96374; 96375; 99284; J2270; J2405; J3490; J7030

== ENCOUNTER 2024-03-18 14:01 | Emergency (ER) | payer MEDICARE ==
[2024-03-18 14:55] LABS: LACTIC ACID 1.4 mmol/L (0.4-2.0)
[2024-03-18] MEDS: Sodium Chloride 0.9% 10 ML Syringe FLUSH PRN (15:51)
[2024-03-18] MEDS: Lactated Ringers 1,000 ML IV ONE (15:52)
[2024-03-19 00:19] LABS: APPEARANCE,URINE SLIGHTLY CLOUDY; BILIRUBIN,URINE NEGATIVE (NEGATIVE); COLOR,URINE YELLOW; GLUCOSE,URINE NEGATIVE (NEGATIVE); KETONES,URINE NEGATIVE (NEGATIVE); LEUKOCYTE ESTERASE,URINE NEGATIVE (NEGATIVE); NITRITE,URINE NEGATIVE (NEGATIVE); OCCULT BLOOD,URINE NEGATIVE (NEGATIVE); PH,URINE 5.5 (5.0-9.0); PROTEIN,URINE TRACE mg/dL (NEGATIVE); UROBILINOGEN,URINE 0.2 E.U./dL (0.2-1.0)
[2024-03-19 00:29] LABS: BACTERIA,URINE NOT SEEN /HPF (NONE TO FEW); EPITHELIAL CELLS,URINE NOT SEEN /LPF; MUCUS,URINE NOT SEEN /LPF (NEGATIVE); RBC,URINE 0-5 /HPF; WBC,URINE NOT SEEN /HPF
[2024-03-19 00:30] LABS: AMORPHOUS SEDIMENT,URINE RARE /HPF (0/HPF)
== END 2024-03-19 00:40 ==
LOC: LL.ED 14:01
DX: N13.2 Hydronephrosis with renal and ureteral calculous obstruction (principal); N17.9 Acute kidney failure, unspecified; I10 Essential (primary) hypertension; E78.00 Pure hypercholesterolemia, unspecified; E11.9 Type 2 diabetes mellitus without complications; E66.9 Obesity, unspecified; E03.9 Hypothyroidism, unspecified; Z86.73 Personal history of transient ischemic attack (TIA), and cerebral infarction without residual deficits; Z79.82 Long term (current) use of aspirin; Z79.899 Other long term (current) drug therapy; Z79.4 Long term (current) use of insulin; Z88.7 Allergy status to serum and vaccine
CPT/HCPCS: 36415; 51702; 74018; 74176; 80048; 81001; 83605; 83735; 83880; 85025; 86140; 87428-QW; 96360; 99285-25; J7120

== ENCOUNTER 2024-05-28 17:00 | Emergency (ER) | payer MEDICARE, MEDICAID ==
[2024-05-28] MEDS ORDERED: Sodium Chloride 0.9% 10 ML Syringe FLUSH PRN (17:09)
[2024-05-28] MEDS: Ondansetron 4 MG/2 ML SDV IVPUSH ONE (21:25)
== END 2024-05-28 22:10 ==
LOC: LL.ED 17:00
DX: N13.2 Hydronephrosis with renal and ureteral calculous obstruction (principal); N17.9 Acute kidney failure, unspecified; I10 Essential (primary) hypertension; E11.9 Type 2 diabetes mellitus without complications; E66.9 Obesity, unspecified; Z88.7 Allergy status to serum and vaccine
CPT/HCPCS: 36415; 74176; 83605; 83735; 96374; 99284; 99285-25; J2405